=== PATIENT | male | born 1950 | race Caucasian/White ===

== ENCOUNTER 2018-06-08 10:35 | Day surgery (SDC) | payer MEDICARE, OTHER ==
[~2018-06-08] VITALS: Ht 180.3 cm; Wt 84.0 kg
[~2018-06-08 10:35] MED LIST: BUSP5 PO; CHOL10002 PO; Colace100 MG PO; Desyrel50 MG PO; ESCI10 PO; HYDR-86 PO; HYDR1TAB94 PO; HYDROCODON-ACE1 EAC3 PO; IBUHYD; IBUP400 PO; LEVO750 PO; LORA.5 PO; LORA2 PO; MACULAR HEALTH1 EACH; MACULAR HEALTH1 EACH PO; MIRT15 PO; OMEP40CA12 PO; ONDA4ODT MM; Oxycodone HCl5 M1; PANT40 PO; PRO OMEGA PO; PROM12.5S PR; Systane 0.3-0.1 EACH BOTHEYES; VALA500 PO; VITAMIN D-32000 UNIT PO; [UNRECOGNIZED DRUG - OTHER] PO
--- NOTE | 2018-06-08 11:36 | NUR ---
History, Chart, Medications and Allergies reviewed before start of procedure. Patient confirms NPO status and agrees with scheduled surgery. Patient reports completing Chlorhexadine shower X2 prior to admission to hospital. Patient States Post-Procedure ride home has been arranged with his friend, Annette.
--- NOTE | 2018-06-08 13:21 | NUR ---
06/08/18 1321 Dorie Roman PT VOIDED PRIOR TO COMING TO THE OR
--- NOTE | 2018-06-08 17:24 | NUR ---
Discharge instructions reviewed with patient. Patient verbalizes understanding. Copy given to patient to take home. Discharged via wheelchair to private car for ride home. PATIENT REPORTS HAS FREIND SPENDING NIGHT WITH HIM. VISITORS ALREADY PICKED UP SCRIPT. DENIES ANY QUESTIONS OR CONCERNS RELATED TO DISCHARGE
--- NOTE | 2018-06-08 18:19 | NUR ---
Discharge instructions reviewed with patient. Patient verbalizes understanding. Copy given to patient to take home. PATIENT REPORTS HAS FULL SCRIPT FOR PAIN MEDS GIVEN EARLIER FOR INJURY THAT HE HAS NOT TAKEN ANY MEDICATIONS. REPORTS PAIN TOLERABLE AND DECLINES MEDICATION PROIR TO DISCHARGE. DENIES ANY NAUSEA. Discharged via wheelchair to private car for ride home.
== END 2018-06-08 12:00 | disposition home or self-care (01) ==
LOC: ORSCMMR 10:35 → ORD 12:30 → ORSCMMR 13:00 → ORD 13:00
PROVIDERS: Surgery
PROC: 0YUA4JZ Supplement Bilateral Inguinal Region with Synthetic Substitute, Percutaneous Endoscopic Approach (ICD-10-PCS; principal; 2018-06-08 13:00)
PROC: 8E0W4CZ Robotic Assisted Procedure of Trunk Region, Percutaneous Endoscopic Approach (ICD-10-PCS; principal; 2018-06-08 13:00)
PROC: 0YUE4JZ Supplement Bilateral Femoral Region with Synthetic Substitute, Percutaneous Endoscopic Approach (ICD-10-PCS; principal; 2018-06-08 13:00)
DX: K40.20 Bilateral inguinal hernia, without obstruction or gangrene, not specified as recurrent (principal); K41.20 Bilateral femoral hernia, without obstruction or gangrene, not specified as recurrent; G47.33 Obstructive sleep apnea (adult) (pediatric); Z87.891 Personal history of nicotine dependence
CPT/HCPCS: 49650; 49659; S2900; C1781; J0690; J1100; J2250; J2370; J2405; J2710; J3010; J7120

== ENCOUNTER 2023-01-09 18:10 | Inpatient (IN) | payer MEDICARE ==
[~2023-01-09] VITALS: Ht 185.4 cm; Wt 75.7 kg
[~2023-01-09 18:10] MED LIST changes: +CARBIDOPA-LEVO1 EA19 PO; +TRAM50 PO
[2023-01-09 19:09] LABS: BASOPHILS ABSOLUTE AUTO 0.01 K/mm3 (0.00-0.23); BASOPHILS PERCENT AUTO 0 % (0-2); EOSINOPHILS PERCENT AUTO 0 % (0-6); Hematocrit 41.3 % (37.0-53.0); Hemoglobin 14.3 g/dL (13.5-17.5); IMMATURE GRAN ABSOLUTE AUTO 0.07 K/mm3 (0.00-0.10); IMMATURE GRAN PERCENT AUTO 1 % (0-1); LYMPHOCYTES ABSOLUTE AUTO 0.57 K/mm3 (0.84-5.20); LYMPHOCYTES PERCENT AUTO 6 % (21-46); MONOCYTES PERCENT AUTO 8 % (4-13); Mean Corpuscular HGB 29.8 pg (26.0-34.0); Mean Corpuscular HGB Conc 34.6 g/dL (31.5-36.5); Mean Corpuscular Volume 86 fL (80-100); Mean Platelet Volume 9.9 fL (9.1-12.4); NEUTROPHILS ABSOLUTE AUTO 8.81 K/mm3 (1.96-9.15); NEUTROPHILS PERCENT AUTO 86 % (41-73); Platelet Count 328 K/mm3 (150-400); RDW Standard Deviation 40.8 fL (35.1-46.3); White Blood Cell Count 10.26 K/mm3 (4.00-11.30)
[2023-01-09 19:43] LABS: Albumin, Blood 2.8 g/dL (3.4-5.0); Albumin/Globulin Ratio 0.8 (0.8-1.8); Bilirubin, Total 1.5 mg/dL (0.1-1.0); Bun/Creatinine Ratio 23.9 (12.0-20.0); Calcium, Blood 8.3 mg/dL (8.5-10.1); Creatinine, Blood 0.92 mg/dL (0.60-1.20); Globulin, Blood 3.6 g/dL (2.2-4.0); Potassium, Blood 3.7 mmol/L (3.5-5.5); Total Protein, Blood 6.4 g/dL (6.4-8.2)
[2023-01-09 20:03] LABS: Influenza A, PCR NEGATIVE (NEGATIVE); Influenza B, PCR NEGATIVE (NEGATIVE); Resp Syncytial Virus, PCR NEGATIVE (NEGATIVE)
[2023-01-09 20:07] LABS: SARS-Cov-2 (COVID-19) PCR, MMC POSITIVE (NEGATIVE)
--- NOTE | 2023-01-10 01:18 | NUR ---
ADMIT NOTE *LATE ENTRY* 0026 HRS PT TRANSPORTED BY [facility] AND FULLY ASSISTED TO HOSPITAL BED. CURRENTLY ON 15 L 02 VIA OXIMIZER. NO DYSPNEA NOTED. VSS. PT ORIENTED TO ROOM AND CALL LIGHT. RECIEVED REPORT FROM ER NURSE DEMETRIO.
--- NOTE | 2023-01-10 03:15 | NUR ---
CALLED RESIDENT WE DID RECEIVE A FAX FROM THE PATIENT'S FACILITY, [facility]. THE PATIENT'S POLST WITH CODE STATUS DNR/LIMITED. HOWEVER THE PATIENT MAY HAVE STATED HE WAS FULL CODE IN THE ER BEFORE ADMIT TO THIS FLOOR. WE WILL RE-EVALUATE WHEN THE PATIENT IS MORE AWAKE AND ALERT. THE PATIENT IS FULL CODE AT THIS TIME.
--- NOTE | 2023-01-10 04:41 | NUR ---
CALLED HOSPITALIST CALLED TO INFORM HIM OF PT RIPPING OFF BIPAP, IV, CLOTHING, AND INCREASED AGITATION. TO PUT IN AN ORDER FOR PORTERL
[2023-01-10 05:14] VITALS: BP 133/73
--- NOTE | 2023-01-10 05:25 | NUR ---
SHIFT SUMMARY PT ADMITTED THIS SHIFT FROM THE ED. PT ORIGINALLY ON 15 L VIA OXIMIZER. PT TRANSFERRED TO BIPAP WITH 8L O2. PT TOLERATED FOR A SHORT TIME BEFORE HE STARTED RIPPING OF BIPAP, IV, GOWN, AND PULSE OX. PLACED HIGH FLOW NC ON PT THAT HAD BEEN PREVIOUSLY SET UP BY RT. PT RIPPING OFF OXYGEN TUBING AND "STATING HE IS DONE WITH THIS AND HE QUITS". CALLED HOSPITALIST WHO PLACED ORDER FOR IM HALDOL. HOSPITALIST TO CALL FAMILY AND COME SEE THE PT. PT WAS TRANSFERRED FROM [facility]. [facility] HAS PATIENT DNR- LIMITED. PER HOSPITALIST THE PT TOLD HIM HE WOULD LIKE TO STAY A FULL CODE AT THIS TIME. PT IS ON ENHANCED DROPLET PRECAUTIONS DUE TO COVID POSITIVE. BED ALARM KEPT IN THE LOWEST POSITION WITH CALL LIGHT WITHIN REACH. WILL CONTINUE TO MONITOR UNTIL SHIFT END
[2023-01-10 06:08] LABS: BASOPHILS ABSOLUTE AUTO 0.01 K/mm3 (0.00-0.23); BASOPHILS PERCENT AUTO 0 % (0-2); EOSINOPHILS PERCENT AUTO 0 % (0-6); Hematocrit 40.8 % (37.0-53.0); Hemoglobin 14.1 g/dL (13.5-17.5); IMMATURE GRAN ABSOLUTE AUTO 0.03 K/mm3 (0.00-0.10); IMMATURE GRAN PERCENT AUTO 0 % (0-1); LYMPHOCYTES ABSOLUTE AUTO 0.31 K/mm3 (0.84-5.20); LYMPHOCYTES PERCENT AUTO 3 % (21-46); MONOCYTES ABSOLUTE AUTO 0.53 K/mm3 (0.16-1.47); MONOCYTES PERCENT AUTO 6 % (4-13); Mean Corpuscular HGB 29.5 pg (26.0-34.0); Mean Corpuscular HGB Conc 34.6 g/dL (31.5-36.5); Mean Corpuscular Volume 85 fL (80-100); NEUTROPHILS ABSOLUTE AUTO 8.75 K/mm3 (1.96-9.15); NEUTROPHILS PERCENT AUTO 91 % (41-73); Platelet Count 275 K/mm3 (150-400); RDW Coefficient Variation 13.1 % (11.7-14.2); RDW Standard Deviation 40.9 fL (35.1-46.3); Red Blood Cell Count 4.78 M/mm3 (4.30-5.90); White Blood Cell Count 9.63 K/mm3 (4.00-11.30)
[2023-01-10 06:37] LABS: Bun/Creatinine Ratio 26.7 (12.0-20.0); Calcium, Blood 8.5 mg/dL (8.5-10.1); Creatinine, Blood 0.97 mg/dL (0.60-1.20); Potassium, Blood 3.9 mmol/L (3.5-5.5)
--- NOTE | 2023-01-10 06:45 | NUR ---
RESIDENT AT BEDSIDE PT REFUSING ALL CARE. PT HAS ORDERED EVERYONE OUT OF THE ROOM AND IS REFUSING ALL CARE. PALLIATIVE CARE AND ETHICS CONSULTS ARE NOW IN PLACE.
[2023-01-10 07:41] VITALS: BP 114/73
--- NOTE | 2023-01-10 07:46 | NUR ---
Ethics consult order received and processed. Medical history, chart doumentation, and social matrix reviewed. Conflict identified between the principals verbal request to receive stabalizing and aggressive care and his actual conduct i.e. he is refusing basic clinical services including non-invasive airway support. Nisa Wray reports that his normal treatment expectations are DNR with limited interventions. If this disparity is attributable to unstable cognition or impaired capacity, then we should default to a care plan that aligns with his previously expressed wishes i.e. a non-curative / less aggressive approach. The advance care planning instruments on file at [facility] need to be requestsed and reviewed to ensure that the [facility] treatment preferences have been properly understood and validated. This can be further confirmed by family members or friends, assuming they possess this level of information. Thank you for this consult. Baron De La Cruz, PhD, JO
--- NOTE | 2023-01-10 14:00 | NUR ---
Spoke with ST Florence and discussed case. Pt recommended NPO. Pt's swallow has worsened since last hospital stay and may need a PEG tube. Pt resting in bed and in MAHNAZ. Pt slow to respond and appears weak and frail. Pt reporting wanting to leave. Engaged in therapeutic discussion regarding recommendations. Assessed Pt's understanding of ST recommendations. When asked about his understanding he states "nothing". Re-enforced education on swallow impairment and the potential need to consider Peg-tube placement. Pt appears to struggle with understanding. Ended visit to allow Pt to rest. Attempted to contact [facility] for copy of POLST. Unable to reach nurse who cares for Pt. Will attempt at a later time. Spoke with Dr Cook and discussed case. Palliative Care will remain available
--- NOTE | 2023-01-10 14:45 | NUR ---
Late Entry Spoke with RN Banking Management Consulting Manager Trudy reporting speaking with staff at [facility]. Pt does not have a POLST on file.
[2023-01-10 15:20] VITALS: BP 124/68
--- NOTE | 2023-01-10 17:49 | NUR ---
SHIFT SUMMARY A&OX2, CONFUSED, CAN BE REDIRECTED, INTERMITTANTLY IMPLUSIVE/NONCOMPLIANT. SWALLOW EVAL PERFORMED BY ST Arsen BEAVERS FAILED AND IS NOW NPO UNTIL FURTHER ORDERS ARE PUT INTO PLACE. PALLIATIVE CARE SAW PATIENT TODAY WITH HIS FRIEND STEPHANIE PRESENT. PATIENT PULLED HIS IV OUT LAST NIGHT AND HAS NOT RECEIVED ANY IV MEDS AT THIS POINT AND REFUSED HIS LOVENOX THIS AM. MAHNAZ RESTRAINT IS STILL IN USE. NO INJURIES NOTED, CIRCULATION INTACT. NEW IV PLACED IN R WRIST. CAMERA MONITORING IN PLACE. PATIENT DENIES PAIN, CP/PRESSURE, N/V, HEADACHE, DIZZINESS, OR SOB. NO ACUTE CHANGES THIS SHIFT. CURRENTLY RESTING IN BED AT LOWEST POSITION. CALL LIGHT IN REACH.
--- NOTE | 2023-01-10 18:17 | NUR ---
Met with Pt's friend Montana outside of Pt's room. Reviewed plan of care and discussed the importance of planning for the future. Montana reports working with Pt for over 40 years. Montana reports Pt is estranged from 2 sons and his sister. He reports Pt has not had contact with his sons for over 30 years and has not had contact with his sister since his last marriage. Discussed the potential need for Pt to consider Peg tube if he remains NPO. Montana reports Pt would not want a Peg tube. Montana also reports Pt's mentation has been declining for quite some time. Montana reports willingness to make decisions for Pt in the future if needed. Palliative Care will remain available
[2023-01-10 19:47] VITALS: BP 126/67
--- NOTE | 2023-01-11 04:01 | NUR ---
SHIFT SUMMARY ADMITTED FOR RESPIRATORY FAILURE. FULL CODE. ENHANCED PRECAUTIONS FOR COVID+. POSSIBLE ASPIRATION CONCERNS. PATIENT IS NPO. AMS, PATIENT IS CONFUSED. NS INFUSING ORDERED. IV ANTIB RX ARE SCHEDULED. HE IS ON RA, SATURATING @ 97%. HE WAS RECENTLY HOSPITALIZED AND SENT TO [facility] AFTERWARDS.
[2023-01-11 04:03] VITALS: BP 132/75
[2023-01-11 05:43] LABS: Hemoglobin 14.1 g/dL (13.5-17.5); Mean Corpuscular HGB 29.7 pg (26.0-34.0); Mean Corpuscular HGB Conc 32.8 g/dL (31.5-36.5); Mean Platelet Volume 10.2 fL (9.1-12.4); Platelet Count 276 K/mm3 (150-400); RDW Coefficient Variation 12.8 % (11.7-14.2); RDW Standard Deviation 42.4 fL (35.1-46.3); Red Blood Cell Count 4.75 M/mm3 (4.30-5.90); White Blood Cell Count 9.56 K/mm3 (4.00-11.30)
[2023-01-11 05:47] LABS: Mean Corpuscular Volume 91 fL (80-100)
[2023-01-11 06:08] LABS: Albumin, Blood 2.4 g/dL (3.4-5.0); Anion Gap 5 mmol/L (6-16); Blood Urea Nitrogen 28 mg/dL (8-24); Bun/Creatinine Ratio 29.8 (12.0-20.0); CO2, Blood 25 mmol/L (21-32); Calcium, Blood 8.4 mg/dL (8.5-10.1); Chloride, Blood 112 mmol/L (98-108); Creatinine, Blood 0.94 mg/dL (0.60-1.20); Glomerular Filtration Rate 87 (60-); Glucose, Blood 91 mg/dL (70-99); Phosphorus, Blood 2.7 mg/dL (2.5-4.9); Potassium, Blood 4.1 mmol/L (3.5-5.5); Sodium, Blood 142 mmol/L (136-145)
[2023-01-11 07:23] VITALS: BP 139/64
--- NOTE | 2023-01-11 13:15 | NUR ---
REPORT GIVEN TO SOTO ALCAZAR. PT WILL BE TRANSFERRED TO ROOM 346 ONCE ROOM IS CLEANED.
--- NOTE | 2023-01-11 13:52 | NUR ---
Spoke with ST Florence and discussed case. Pt cleared for puree diet but mentation remains impaired. Pt resting in bed and in MAHNAZ. Pt is confused and adamant about going home. Pt states he will drive his truck home. Reorientated Pt on where he was and how he arrived to the hospital. Pt struggling with understanding and remains in denial. Spoke with RN Ladle Cleaner Trudy and discussed case. Palliative Care will remain available
--- NOTE | 2023-01-11 14:28 | NUR ---
PT ARRIVED TO ROOM 346 FROM ROOM 342 VIA BED. PT IS ALERT BUT CONFUSED AND IMPULSIVE. REPORT TAKEN FROM SALMA ALCAZAR. THE PT WAS ORIENTED TO THE ROOM CALL LIGHT. THE PT IS IN A VEST RESTRAINT AT THIS TIME. BED IN THE LOW POSITION, BED ALARM ON
[2023-01-11 17:35] VITALS: BP 130/65
--- NOTE | 2023-01-11 17:58 | NUR ---
PT IS ALERT, ORIENTED TO SELF. PT IS IMPULSIVE TRYING TO GET UP SAYING HE NEEDS TO GO TO HIS TRUCK. THE PT IS CURRENTLY IN A VEST RESTRAINT DUE TO THE IMPULSIVENESS AND PULLING OUT IV LINES. THE PT APPEARS TO BE BREATHING EASILY ON RA AT THIS TIME. THE PT WAS GIVEN FLUIDS HONEY THICK AND DID WELL WITH THAT. PT REFUES DINNER. CALL LIGHT IN REACH. BED ALARM VIRTUAL SANITARIAN AT THE BEDSIDE
[2023-01-11 19:32] VITALS: BP 128/71
[2023-01-12 03:16] VITALS: BP 133/55
--- NOTE | 2023-01-12 04:28 | NUR ---
shift summary. shift has been mostly unremarkable. pt was in flaquita restraint upon shift change but was removed early in shift as pt has not been impulsive for me and has been redirectable throughout. pleasant and cooperative with care, aox1-2. repositioned frequently. incontinent, 1 bm this shift. satting well on room air. sleeps sporadically. has denied any pain this shift. bedrest thus far. has not used call light but is able to make needs known when prompted. fluids running throughout shift. bed locked in lowest positoin. call light left within reach.
[2023-01-12 07:15] LABS: BASOPHILS ABSOLUTE AUTO 0.02 K/mm3 (0.00-0.23); BASOPHILS PERCENT AUTO 0 % (0-2); EOSINOPHILS ABSOLUTE AUTO 0.02 K/mm3 (0.00-0.68); EOSINOPHILS PERCENT AUTO 0 % (0-6); Hematocrit 43.2 % (37.0-53.0); Hemoglobin 14.4 g/dL (13.5-17.5); IMMATURE GRAN ABSOLUTE AUTO 0.07 K/mm3 (0.00-0.10); IMMATURE GRAN PERCENT AUTO 1 % (0-1); LYMPHOCYTES ABSOLUTE AUTO 0.66 K/mm3 (0.84-5.20); LYMPHOCYTES PERCENT AUTO 6 % (21-46); MONOCYTES ABSOLUTE AUTO 0.83 K/mm3 (0.16-1.47); MONOCYTES PERCENT AUTO 8 % (4-13); Mean Corpuscular HGB 29.8 pg (26.0-34.0); Mean Corpuscular HGB Conc 33.3 g/dL (31.5-36.5); Mean Corpuscular Volume 89 fL (80-100); Mean Platelet Volume 9.8 fL (9.1-12.4); NEUTROPHILS ABSOLUTE AUTO 8.99 K/mm3 (1.96-9.15); NEUTROPHILS PERCENT AUTO 85 % (41-73); Platelet Count 314 K/mm3 (150-400); RDW Coefficient Variation 12.8 % (11.7-14.2); RDW Standard Deviation 42.2 fL (35.1-46.3); Red Blood Cell Count 4.83 M/mm3 (4.30-5.90); White Blood Cell Count 10.59 K/mm3 (4.00-11.30)
[2023-01-12 07:36] LABS: Bun/Creatinine Ratio 23.5 (12.0-20.0); Calcium, Blood 8.2 mg/dL (8.5-10.1); Creatinine, Blood 0.94 mg/dL (0.60-1.20); Potassium, Blood 4.1 mmol/L (3.5-5.5)
[2023-01-12 07:54] VITALS: BP 131/79
--- NOTE | 2023-01-12 11:37 | NUR ---
Pt resting in bed upon arrival. Pt's mentation is improved at time of this RN's visit. Offered therapeutic listening as Pt discusses events of previous marriages and not having contact with his 2 sons for quite some time. Pt reports for now his friend Montana will be his Healthcare Proxy. Engaged in therapeutic discussion regarding planning for the future. Educated on disease process including trajectory. Discussed the importance of needing to consider living in an assisted living. Discussed with Pt wishes regarding code status. Educated on life sustaining treatments including risks and implications. Pt reports his wishes are DNR. He reports for now being ok with returning to the hospital if needed to receive basic medical treatment (Limited Treatment). Assisted with completing POLST reflecting these wishes. Will discuss with Dr Cook and change code status. Palliative Care will remain available
--- NOTE | 2023-01-12 12:56 | NUR ---
Obtained signature for POLST from Dr Cook. Sent copy of POLST to medical records via hospital tube system. Placed orginal POLST in Pt's paper chart. Original POLST to follow Pt when D/C. Placed DNR order in [facility] per V/O from Dr Cook.
--- NOTE | 2023-01-12 13:41 | NUR ---
Spiritual care visit conducted. Patient is very welcoming of spiritual care and talks about his townsend with COVID and his fears that he will . Although he seems confused at times, he shares about his strong Judaism jamel and his concerns that he will be ready to because of the sins that he has committed. We discuss his spiritual beliefs and his thoughts about God, heaven and sin. He expresses thoughts that indicate that his sickness is God's judgement for his sins. I provide theological insights to the contrary and also point out scriptures that affirm God's tommy, forgiveness and promise of eternal life. Patient seemed relieved by the conversation and expressed futher yoselyn following a prayer that we prayed together. I will continue to remain available to patient and family.
[2023-01-12 17:02] VITALS: BP 131/90
--- NOTE | 2023-01-12 19:48 | NUR ---
SHIFT SUMMARY: "CARLYN" IS A&OX2-3. VSS, NO ACUTE EVENTS THIS SHIFT. POWERGLIDE TO LEFT UPPER ARM PATENT, SALINE LOCKED. MUSCLE STIFFNESS ESPECIALLY IN NECK AND BLE NOTED. PT WITH PO INTAKE RECOMMENDATIONS PER SPEECH. ATTENDS IN PLACE FOR INCONTINENCE. VIDEO MONITORING AND BED ALARM IN PLACE FOR IMPULSIVENESS, PT FORGETS HIS LIMITATIONS. MAINTAINING SATS ORA, CONTINUOUS PULSE OX IN PLACE. PT HAS BEEN REDIRECTABLE THIS SHIFT. HE IS SITTING UP IN BED WITH THE CALL LIGHT IN REACH. REPORT WAS GIVEN TO TAPPING MACHINE OPERATOR AUTOMATIC RN.
[2023-01-12 21:35] VITALS: BP 136/73
[2023-01-13 04:41] VITALS: BP 139/85
--- NOTE | 2023-01-13 04:52 | NUR ---
SHIFT SUMMARY PATIENT IS ALERT AND ORIENTED TO SELF ONLY. PATIENT HAS BEEN IMPULSIVE MOST OF THE BEGINNING OF SHIFT. SHIRA WAS CONTACTED AND OBTAINED A MAHNAZ VEST ORDER FOR SAFETY. PATIENT HAS BEEN INCONTINENT AND CHANGED PRN. VIDEO MONITORING IN PLACE. PATIENT HAS NOT COMPLAINED OF PAIN, NAUSEA, SOB OR VOMITTING THIS SHIFT. PATIENT IS ON COVID PRECAUTIONS AND HAS BEEN ON ROOM AIR ALL SHIFT SATTING ABOVE 95. BED IN LOCKED AND LOCKED POSITION. CALL LIGHT IN PLACE. WILL MONITOR UNTIL SHIFT CHANGE.
[2023-01-13 07:23] VITALS: BP 128/76
[2023-01-13 10:31] LABS: Bun/Creatinine Ratio 19.1 (12.0-20.0); Calcium, Blood 8.3 mg/dL (8.5-10.1); Creatinine, Blood 0.89 mg/dL (0.60-1.20); Potassium, Blood 3.7 mmol/L (3.5-5.5)
--- NOTE | 2023-01-13 15:01 | NUR ---
Brief supportive visit this afternoon. Pt resting in bed with friend Montana at bedside. Reviewed plan of care and answered questions. Pt and Montana report no other concerns at this time. Palliative Care will remain available
--- NOTE | 2023-01-13 15:44 | NUR ---
SHIFT SUMMARY: PATIENT IS AWAKE, ALERT AND ORIENTED TO SELF ONLY. IMPULSIVE, TRYING TO GET OOB ON MULTIPLE OCCASION AND NOT REDIRECTABLE. PATIENT STILL ON MAHNAZ VEST RESTRAINT FOR SAFETY. DENIES CP/PRESSURE, SOB, N/V AND DIZZINESS. RA c SPO2 RANGES 96-98% T/O SHIFT. LUNGS HAS FINE CRACKLES AND DIM T/O TO AUSCULTATIONS. PATIENT ON PUREED DIET c HONEY THICK LIQUIDS AND 1:1 FEEDER. PATIENT IS INCONTINENCE OF BLADDER, CHRISTOFER CARE, ATTENDS CHANGED, REPOSITIONED AND ORAL CARE T/O SHIFT. RECEIVED SCHEDULED IV ABX AND PO MEDS PER EMAR. VITAL SIGNS REVIEWED. BED ALARM ON FOR SAFETY AND CALL LIGHT IN REACH.
[2023-01-13 20:50] VITALS: BP 125/73
--- NOTE | 2023-01-14 04:15 | NUR ---
SHIFT SUMMARY PATIENT IS ALERT AND ORIENTED TO SELF ONLY. PATIENT HAS HAD NO ACUTE EVENTS THIS SHIFT. VITAL SIGNS REVIEWED. PATIENT HAS BEEN ON CAMERA FOR SAFETY PRECAUTIONS. PATIENT HAS BEEN IN A MAHNAZ VEST ALL SHIFT AND MONITORED FREQUENTLY FOR SAFETY. PATIENT HAS PULLED HIS POWERGLIDE THIS SHIFT. PATIENT HAD A BOWEL MOVEMENT THIS SHIFT. PATIENT REMAINS INCONTINENT OF URINE AND STOOL. PATIENT HAS NOT COMPLAINED OF PAIN, NAUSEA, SOB OR VOMITTING THIS SHIFT. PATIENT IS ON ROOM AIR AND HAS NOT GONE BELOW 95 O2 THIS SHIFT. BED IN LOCKED AND LOWEST POSITION. CALL LIGHT IN PLACE. WILL MONITOR UNTIL SHIFT CHANGE.
[2023-01-14 05:05] VITALS: BP 132/74
[2023-01-14 07:11] VITALS: BP 129/69
[2023-01-14 14:27] VITALS: BP 119/73
--- NOTE | 2023-01-14 17:59 | NUR ---
SHIFT SUMMARY: AT BEGINNING OF SHIFT, PATIENT WAS TRYING TO GET OOB AND NOT REDIRECTABLE. RECEIVED PRN PO SEROQUEL c GOOD EFFECT. PATIENT MENTATION HAS IMPROVED THE DAY PROGRESS. PATIENT IS AWAKE, ALERT, AND ORIENTED TO SELF, PLACED AND CURRENT SITUATION. PATIENT IS CALM, PLEASANT, COOPERATIVE AND EASILY REDIRECTABLE. MAHNAZ VEST RESTRAINT WAS DC'D AT AROUND 1100. PATIENT ABLE TO PARTICIPATE c PT MOBILITY IN BED AND ABLE TO SIT UP ON THE EOB. PER PT PATIENT ATTEMPTED TO STAND UP BUT WAS NOT SUCCESSFUL. PATIENT CONTINUES TO BE INCONTINENCE OF BOWELS AND BLADDER, CHRISTOFER CARE, ATTENDS CHANGED AND REPOSITIONED T/O SHIFT. PATIENT DENIES CP/PRESSURE, SOB, N/V AND DIZZINESS. RECEIVED SCHEDULED IV ABX AND PO MEDS PER EMAR. FEEDER AND ORAL CARE. RECEIVED BEDBATH AND LINEN CHANGED TODAY. VITAL SIGNS REVIEWED. BED ALARM ON FOR SAFETY. PIV TO JESSICA SALINE LOCKED. CALL LIGHT IN REACH.
[2023-01-14 19:34] VITALS: BP 99/57
[2023-01-15 03:30] VITALS: BP 119/61
--- NOTE | 2023-01-15 04:23 | NUR ---
SHIFT SUMMARY PATIENT IS ALERT AND ORIENTED TO SELF ONLY. PATIENT HAS HAD NO ACUTE EVENTS THIS SHIFT. PATIENT HAS BEEN OUT OF RESTRAINTS ALL SHIFT AND HAS BEEN REDIRECTABLE THIS SHIFT. PATIENT HAS NOT COMPLAINED OF PAIN, NAUSEA, SOB OR VOMITTING THIS SHIFT. PATIENT IS STILL ON ROOM AIR AND SATTING ABOVE 95 ENTIRE SHIFT. PATIENT HAS BEEN INCONTINENT OF URINE AND STOOL THIS SHIFT. BED IN LOCKED AND LOWEST POSITION. CALL LIGHT IN PLACE.
[2023-01-15 05:31] LABS: Hematocrit 41.4 % (37.0-53.0); Mean Corpuscular HGB Conc 33.8 g/dL (31.5-36.5); Mean Corpuscular Volume 89 fL (80-100); Mean Platelet Volume 9.6 fL (9.1-12.4); Platelet Count 360 K/mm3 (150-400); RDW Coefficient Variation 12.8 % (11.7-14.2); RDW Standard Deviation 41.3 fL (35.1-46.3); Red Blood Cell Count 4.67 M/mm3 (4.30-5.90); White Blood Cell Count 11.25 K/mm3 (4.00-11.30)
[2023-01-15 06:09] LABS: Bun/Creatinine Ratio 15.1 (12.0-20.0); Calcium, Blood 8.3 mg/dL (8.5-10.1); Creatinine, Blood 0.86 mg/dL (0.60-1.20); Potassium, Blood 3.9 mmol/L (3.5-5.5)
[2023-01-15 07:27] VITALS: BP 122/71
[2023-01-15 15:17] VITALS: BP 119/63
--- NOTE | 2023-01-15 15:25 | NUR ---
SHIFT SUMMARY: PATIENT IS AWAKE, ALERT AND ORIENTED TO SELF, PLACED AND CURRENT SITUATION. PATIENT IS CALM, PLEASANT AND COOPERATIVE c CARE. PATIENT DENIES CP/PRESSURE, N/V, SOB AND DIZZINESS. REPORTS PAIN TO LOWER BACK, WELL CONTROLLED c EMAR PAIN MEDS. PATIENT STILL ON ENHANCE ISOLATION FOR COVID POSITIVE. RA, ON CONTINUES PULSE OX, c SPO2 RANGES 95-99% THIS SHIFT. PATIENT IS INCONTINENCE OF BOWELS AND BLADDER, CHRISTOFER CARE, ATTENDS CHANGED AND REPOSITIONED T/O SHIFT. PATIENT IS ON PUREED DIET c NECTAR THICK LIQUID, FEEDER AND ORAL CARE. PATIENT RECEIVED SCHEDULED MEDS AND PRN SEROQUEL PER EMAR. VITAL SIGNS REVIEWED. PIV TO R FOREARM SALINE LOCKED. PATIENT IS ON VIDEO MONITORING, BED ALARM ON FOR SAFETY AND CALL LIGHT IN REACH.
[2023-01-15 19:30] VITALS: BP 99/59
[2023-01-16 04:32] VITALS: BP 103/60
--- NOTE | 2023-01-16 06:06 | NUR ---
SUMMARY: PT A/O TO SELF, SURROUNDINGS AND SITUATION BUT HAS SOME MILD CONFUSION AND IMPULSIVITY. REMINDERS WERE PROVIDED, BED ALARM IS ON AND CAMERA MONITORING IS IN PROGRESS FOR FALL RISK/SAFETY. HE'S PLEASANT AND COOPERATIVE W/CARE BUT IS VERY WEAK AND REMAINS ON BEDREST W/PHYS THERAPY CONSULTING. PT WAS ASSISTED W/REPOSITIONING, URINAL USE AND ATTENDS CHANGES PRN. HE TOLERATED PILLS CRUSHED IN APPLESAUCE W/ASP PREC'S MAINTAINED. COVID ISOLATION IN PLACE BUT SPO2 WNL ON RA W/CONT BIOX INTACT AND NO S/S RESP DISTRESS OBSERVED. SCHEDULED SEROQUEL AND TYLENOL WERE RECIEVED FOR RELIEF OF ANXIETY AND LOW BACK PAIN. NO ACUTE CHANGES, VSS/AFEBRILE. WCTM AND REPORT TO DAY RN.
[2023-01-16 07:30] VITALS: BP 122/71
--- NOTE | 2023-01-16 14:18 | NUR ---
SHIFT SUMMARY PT RESTING QUIETLY AT START OF SHIFT. SITTING UP TO CHAIR FOR BREAKFAST. PT IS FORGETFUL. BED ALARM ON FOR SAFETY. CALLS AT TIMES WHEN NEEDING TO VOID; OCCASSIONAL INCONTINENCE. THERAPY IN TO WORK WITH PT THIS AM. COVID +, ON RA WITH BIOX AT 98-100%. MEDS CRUSHED IN APPLESAUCE, HONEY THICK LIQUIDS. HX OF PARKINSONS. MEDICATED PER EMAR FOR C/O BACK PAIN AT START OF SHIFT. UP TO CHAIR FOR LUNCH. 2P ASSIST BACK TO BED, RESTING QUIETLY AT THIS TIME. CALL LT IN REACH. BED ALARM ON FOR SAFETY.
[2023-01-16 15:14] VITALS: BP 97/59
[2023-01-16 19:24] VITALS: BP 99/57
[2023-01-17 02:54] VITALS: BP 101/57
--- NOTE | 2023-01-17 06:17 | NUR ---
SHIFT SUMMARY PT AAOX3 BUT SITUATIONALLY CONFUSED. PT DID REQUEST PRN TYLENOL X1 FOR BACK PAIN. NO OTHER EVENTS. PT WAS GOOD OVERNIGHT AND ONLY ATTEMPTED TO GET OOB A FEW TIMES TO USE THE URINAL. NO OTHER EVENTS OVERNIGHT.
[2023-01-17 07:18] VITALS: BP 116/68
[2023-01-17 15:35] VITALS: BP 126/73
--- NOTE | 2023-01-17 16:53 | NUR ---
Policy clarification requested from attending provider regarding the use of medications to aid in the management of patients who are an elevated fall risk. Resolved: medications are not to be used as a form of restraint, but will be prescribed and administered according to acceptable medical, nursing, and pharmaceutical practices. If a dosage increase is clinically indicated for disease management, and as a secondary consequence it retards mobility, then it would not be considered a chemical restraint, but rather a necessary form of medical intervention. Thank you for this consult. Baron De La Cruz, PhD, JO
--- NOTE | 2023-01-17 17:50 | NUR ---
SHIFT SUMMARY PT AWAKE AT START OF SHIFT AND REMAINED AWAKE ALL DAY; SLEEPING ONLY A COUPLE OF MINUTES ONE TIME. PT OOB OR OUT OF THE CHAIR CONSTANTLY ALL SHIFT LONG. PT IS VERY UNSTEADY AND UNABLE TO EVEN STAND ON HIS OWN, MUCH LESS WALK; 2P MAX ASSIST USING FWW AND GB TO GET TO CHAIR OR BACK TO BED ONLY A COUPLE OF STEPS AWAY. PT DOES NOT FOLLOW DIRECTIONS MOST OF THE TIME. VERY FORGETFUL WITH SHORT TERM MEMORY. CONDOM CATH PLACED ON NOC SHIFT, BUT PT PULLED IMMEDIATELY AFTER START OF DAY SHIFT, SPILLING ALL OVER THE FLOOR. UP TO BSC FOR BM'S TODAY. PT ABLE TO WORK WITH PT/OT DURING THE DAY. PROMOTIONAL MODEL WORKING ON SAFE DISCHARGE PLAN. BED ALARM ON FOR SAFETY. CALL LT IN REACH.
[2023-01-17 20:26] VITALS: BP 96/54
--- NOTE | 2023-01-18 05:49 | NUR ---
SHIFT SUMMARY PT CALM AND SLEPT UNTIL AROUND 0430 AND TRYING TO GET OOB. PT SCREAMING I NEED TO GET TO MY TRUCK NOW TO GET MY MAIL AND SEE LONI. PT NOT REDIRECTABLE, TRIED TO DIVERT HIS ATTENTION AND OBTAIN VS. PT REFUSING AND GETTING COMBATIVE AND DIGGING NAILS INTO DISPATCHER CLERK AND YELLING. ALLOWED PT TO REFUSE VS, BUT PT STILL COMBATIVE AND GETTING INCREASINGLY MORE AGITATED. CALLED DR. BLACKMON TO REQUEST MEDICATION PT IS COMBATIVE, TRYING TO HIT, HALLUCINATING, YELLING, AND IS NOT REDIRECTABLE. ONE TIME ORDER OF 2.5MG HALDOL OBTAINED AND GIVEN WITH POSTIVE EFFECT.
--- NOTE | 2023-01-18 05:57 | NUR ---
SHIFT SUMMARY PT CALM AND COOPERATIVE AT BEGINNING OF SHIFT. AROUND 0430 PT STARTED GETTING OOB AND YELLING AND GETTING AGITATED. TRIED CALMING PATIENT, REDIRECTING HIM, DIVERTING HIS ATTENTION. ALL UNSUCCESSFUL. PT HALLUCINATING SEEING HIS TRUCK AND TRYING TO GET TO IT SAYING HE NEEDS TO GET HIS MAIL RIGHT NOW AND PLANT PROTECTION GUARD CHARLEY. PT NOT STEADY ON HIS FEET AND WHEN STAFF GETS NEAR HE STARTS SWINGING. GOT PT IN BED AND EXPLAINED HE IS AT THE HOSPITAL, ATTEMPTED TO TAKE VS AND PT STARTED DIGGING NAILS INTO WRITERS HANDS AND GETTING AGGRESSIVE. ALLOWED PT TO REFUSE VS, HE CONTINUED TO YELL AND GET INCREASINGLY MORE AGITATED ATTEMPTING TO GET OOB, GETTING MORE COMBATIVE WITH ANYONE WHO TRIES TO ASSIST HIM. NOTIFIED DR. BLACKMON TO REQUEST SOMETHING FOR AGITATION. ONE TIME ORDER OF HALDOL OBTAINED AND GIVEN WITH POSITIVE EFFECT. PT NOW CALM AND RESTING.
[2023-01-18 07:37] VITALS: BP 120/60
[2023-01-18 15:02] VITALS: BP 127/74
--- NOTE | 2023-01-18 17:45 | NUR ---
SHIFT SUMMARY: PT IS A 72 YEAR OLD WHO IS PLEASANT AND COOPERATIVE WITH OCASSIONAL CONFUSION AND DELUSION. HE HAS BEEN TO THE BED SIDE CHAIR AND DOING HIS EXERCISES TODAY AND WAS EVALUATED BY PT AND OT TODAY AND DID WELL. HE PROGRESSED FROM PUREE DIET TO MECHANICAL SOFT; WHICH HE HAS LIKED BETTER. HE CONTINUES TO BE NECTAR THICK. HE IS IN BED, CALL LIGHT WITHIN REACH, BED IN LOWEST POSITION, AND BED ALARM SET. NO SIGNS OF SYMPTOMS OF DISTRESS. PLAN OF CARE ONGOING.
[2023-01-18 20:49] VITALS: BP 105/59
[2023-01-19 04:59] VITALS: BP 117/66
--- NOTE | 2023-01-19 06:10 | NUR ---
Shift Summary Pt AOx4 with some episodes of confusion and delusion. He is easily reoriented. Slept well t/o most of the night after night time meds. Condom cath in place draining urine, he was continent with urinary urgency before condom cath placement. C/O back pain, medicated per EMAR with PRN tylenol. Pt is very weak, he attempted to get out of bed once and had to be assisted back into bed.
[2023-01-19 07:50] VITALS: BP 131/75
[2023-01-19 07:53] VITALS: BP 131/75
[2023-01-19 15:01] VITALS: BP 120/69
--- NOTE | 2023-01-19 16:50 | NUR ---
SHIFT SUMMARY: PT A&O X2-3. PT PLEASANT AND COOPERATIVE WITH ALL CARE. @0745 PT BED ALARM WENT OFF. WHEN STAFF WENT INTO ROOM, PT HAD ONE KNEE ON FLOOR HOLDING ON SIDE RAIL STATING "I DID NOT FALL. I WAS TRYING TO REACH MY PHONE." PHONE WAS LYING ON BED NEXT TO CALL LIGHT. IRIS AND POST FALL ASSESSMENT COMPLETED. NO INJURIES OCCURED WITH FALL. VSS POST FALL. NO FURTHER ACUTE EVENTS FAR THIS SHIFT. NO AGGRESSION OR AGITATION WITH STAFF. PT C/O BACK PAIN. REPOSITIONED AND MEDICATED PER EMAR. CONDOM CATH IN PLACE DRAINING YELLOW URINE. PT/OT ABLE TO WORK WITH PT. PT STILL WEAK REQUIRING 1-2P ASSIST W/TRANSFERS. PATIENT ABLE TO SWALLOW MEDS WHOLE WITH NECTAR LIQUID. CALL LIGHT IN REACH. BED IN LOWEST POSITION. WILL CONTINUE TO MONITOR.
[2023-01-19 19:06] VITALS: BP 112/68
[2023-01-19 19:32] VITALS: BP 112/68
[2023-01-20 04:01] VITALS: BP 121/67
--- NOTE | 2023-01-20 06:05 | NUR ---
Shift Summary When I first arrived pt had just had a fall, although according to the pt he was purposfully crawling across the floor to use the bathroom. No injuries were sustained, there is some redness on his knees. Pt slept well t/o the night after night-time meds. He is using the urinal in bed for voids with assistance. He is AOx4 although has moments of acute confusion forgetting where he is and why he is here. He also continues to overestimate his own strength and states he could still ambulate safetly to the bathroom even after 2 falls yesterday.
[2023-01-20 07:14] VITALS: BP 110/61
[2023-01-20] MEDS ORDERED: QUET100 PO (14:19)
[2023-01-20] MEDS ORDERED: Vitamin D1000 UNI1 PO (14:20)
--- NOTE | 2023-01-20 15:53 | NUR ---
MULTIPLE CALLS TO [facility] TO GIVE REPORT. BUSY SIGNAL EACH TIME.
[2023-01-20 16:37] VITALS: BP 126/68
--- NOTE | 2023-01-20 17:33 | NUR ---
PT DISCHARGED TO [facility]. REPORT GIVEN TO INGE ROBERSON. ALERT AND ORIENTED, R/A 2 PERSON ASSIST WITH FWW AND GAIT BELT
== END 2023-01-20 17:07 | DRG 177 ==
LOC: ER 18:10 → MEDS 22:52 → ENPENDDIS 01-20 13:49 → MEDS 01-20 17:07
PROVIDERS: Family Medicine Adult Medicine; Internal Medicine; Student in an Organized Health Care Education/Training Program; ADMIT Internal Medicine
PROC: XW033E5 Introduction of Remdesivir Anti-infective into Peripheral Vein, Percutaneous Approach, New Technology Group 5 (ICD-10-PCS; principal; 2023-01-09)
PROC: 3E0333Z Introduction of Anti-inflammatory into Peripheral Vein, Percutaneous Approach (ICD-10-PCS; 2023-01-09)
PROC: 8E0ZXY6 Isolation (ICD-10-PCS; 2023-01-09)
PROC: 5A09357 Assistance with Respiratory Ventilation, Less than 24 Consecutive Hours, Continuous Positive Airway Pressure (ICD-10-PCS; 2023-01-10)
DX: U07.1 COVID-19 (principal); G92.8 Other toxic encephalopathy; J69.0 Pneumonitis due to inhalation of food and vomit; J96.01 Acute respiratory failure with hypoxia; Z51.5 Encounter for palliative care; Z66 Do not resuscitate; G20.A1 Parkinson's disease without dyskinesia, without mention of fluctuations; F02.80 Dementia in other diseases classified elsewhere, unspecified severity, without behavioral disturbance, psychotic disturbance, mood disturbance, and anxiety; R13.12 Dysphagia, oropharyngeal phase; M19.90 Unspecified osteoarthritis, unspecified site; K44.9 Diaphragmatic hernia without obstruction or gangrene; M51.9 Unspecified thoracic, thoracolumbar and lumbosacral intervertebral disc disorder; F32.A Depression, unspecified; E86.0 Dehydration; Z78.1 Physical restraint status; Z79.899 Other long term (current) drug therapy; Z86.79 Personal history of other diseases of the circulatory system; Z98.52 Vasectomy status; Z98.890 Other specified postprocedural states; Z79.891 Long term (current) use of opiate analgesic
CPT/HCPCS: 0241U; 31720; 36415; 71045; 80048; 80053; 80069; 83880; 84484; 85025; 85027; 92526; 92610; 93005; 93010; 94640; 94660; 94664; 94762; 96365; 96375; 97110; 97112; 97161; 97165; 97530; 97535; 99285-25; A9270; C1751; J0248; J1100; J1630; J1650; J2543; J7030; J7050

== ENCOUNTER 2023-02-19 06:50 | Inpatient (IN) | payer MEDICARE ==
[~2023-02-19] VITALS: Ht 180.3 cm; Wt 73.6 kg
[~2023-02-19 06:50] MED LIST changes: +QUET100 PO; +Vitamin D1000 UNI1 PO
[2023-02-19 08:36] LABS: BASOPHILS ABSOLUTE AUTO 0.01 K/mm3 (0.00-0.23); BASOPHILS PERCENT AUTO 0 % (0-2); EOSINOPHILS PERCENT AUTO 0 % (0-6); Hematocrit 42.7 % (37.0-53.0); Hemoglobin 14.2 g/dL (13.5-17.5); IMMATURE GRAN ABSOLUTE AUTO 0.01 K/mm3 (0.00-0.10); IMMATURE GRAN PERCENT AUTO 0 % (0-1); LYMPHOCYTES ABSOLUTE AUTO 0.39 K/mm3 (0.84-5.20); LYMPHOCYTES PERCENT AUTO 8 % (21-46); MONOCYTES ABSOLUTE AUTO 0.37 K/mm3 (0.16-1.47); MONOCYTES PERCENT AUTO 8 % (4-13); Mean Corpuscular HGB 30.4 pg (26.0-34.0); Mean Corpuscular HGB Conc 33.3 g/dL (31.5-36.5); Mean Corpuscular Volume 91 fL (80-100); Mean Platelet Volume 9.2 fL (9.1-12.4); NEUTROPHILS ABSOLUTE AUTO 4.13 K/mm3 (1.96-9.15); NEUTROPHILS PERCENT AUTO 84 % (41-73); Platelet Count 296 K/mm3 (150-400); RDW Coefficient Variation 15.1 % (11.7-14.2); RDW Standard Deviation 50.6 fL (35.1-46.3); Red Blood Cell Count 4.67 M/mm3 (4.30-5.90); White Blood Cell Count 4.91 K/mm3 (4.00-11.30)
[2023-02-19 09:00] LABS: Bilirubin, Total 1.7 mg/dL (0.1-1.0); Bun/Creatinine Ratio 14.3 (12.0-20.0); Calcium, Blood 8.5 mg/dL (8.5-10.1); Creatinine, Blood 0.84 mg/dL (0.60-1.20); Globulin, Blood 3.1 g/dL (2.2-4.0); Total Protein, Blood 6.1 g/dL (6.4-8.2)
[2023-02-19 15:38] VITALS: BP 116/52
--- NOTE | 2023-02-19 18:13 | NUR ---
SHIFT SUMMARY ADMIT FROM ER AT ABOUT 1630. NPO STATUS, PATIENT HAS WET SOUNDING GURGLES, VOICE SOUNDS WET, DOESN'T APPEAR TO BE ABLE TO SWALLOW EFFECTIVELY FROM NURSING STANDPOINT, SUCTION SET UP IN ROOM, PATIENT DIDN'T TOLERATE WELL. REQUIRED 3 PERSON SLIDE TRANSFER TO BED. ALARM ON. PROVIDING INCONSISTENT INFORMATION FOR ADMIT. TOLERATING ABX WELL. CONDOM CATH IN PLACE ON ARRIVAL, DARK JAYLA URINE PRESENT. SKIN ISSUES NOTED IN ASSESSMENT. WILL CONTINUE TO MONITOR
[2023-02-19 19:49] VITALS: BP 94/59
[2023-02-19 21:27] VITALS: BP 119/75
[2023-02-20 03:25] VITALS: BP 108/62
--- NOTE | 2023-02-20 04:27 | NUR ---
SHIFT SUMMARY PT HAS HX OF DEMENTIA, NOT ABLE TO ANWER QUESTIONS APPROPRIATELY. PT CURRENTLY NPO STATUS D/T SWALLOWING DIFFICULTIES. AWAITING SPEECH EVAL. PT HAS WEAK COUGH EFFECT THAT APPEARS WET. PROVIDED SWABS FOR COMFORT. LR DONE INFUISING, ONLY 1 BAG ORDERED. PT INCONTINENT WITH CONDOM CATH IN PLACE. URINE IS DARK TEA COLORED. CALL LIGHT WITHIN REACH WITH BED IN LOWEST POSITION. PT KNOWS HOW TO CALL APPROPRIATELY. WILL CONTINUE TO MONITOR.
[2023-02-20 05:20] LABS: BASOPHILS ABSOLUTE AUTO 0.01 K/mm3 (0.00-0.23); BASOPHILS PERCENT AUTO 0 % (0-2); EOSINOPHILS ABSOLUTE AUTO 0.01 K/mm3 (0.00-0.68); EOSINOPHILS PERCENT AUTO 0 % (0-6); Hematocrit 34.6 % (37.0-53.0); Hemoglobin 11.2 g/dL (13.5-17.5); IMMATURE GRAN ABSOLUTE AUTO 0.01 K/mm3 (0.00-0.10); IMMATURE GRAN PERCENT AUTO 0 % (0-1); LYMPHOCYTES ABSOLUTE AUTO 0.59 K/mm3 (0.84-5.20); LYMPHOCYTES PERCENT AUTO 10 % (21-46); MONOCYTES ABSOLUTE AUTO 0.45 K/mm3 (0.16-1.47); MONOCYTES PERCENT AUTO 8 % (4-13); Mean Corpuscular HGB 29.9 pg (26.0-34.0); Mean Corpuscular HGB Conc 32.4 g/dL (31.5-36.5); Mean Corpuscular Volume 93 fL (80-100); Mean Platelet Volume 9.4 fL (9.1-12.4); NEUTROPHILS ABSOLUTE AUTO 4.82 K/mm3 (1.96-9.15); NEUTROPHILS PERCENT AUTO 82 % (41-73); Platelet Count 185 K/mm3 (150-400); RDW Coefficient Variation 15.1 % (11.7-14.2); RDW Standard Deviation 51.3 fL (35.1-46.3); Red Blood Cell Count 3.74 M/mm3 (4.30-5.90); White Blood Cell Count 5.89 K/mm3 (4.00-11.30)
[2023-02-20 06:00] LABS: Albumin, Blood 2.6 g/dL (3.4-5.0); Bilirubin, Total 1.4 mg/dL (0.1-1.0); Bun/Creatinine Ratio 20.5 (12.0-20.0); Calcium, Blood 8.2 mg/dL (8.5-10.1); Creatinine, Blood 1.17 mg/dL (0.60-1.20); Globulin, Blood 2.6 g/dL (2.2-4.0); Total Protein, Blood 5.2 g/dL (6.4-8.2)
[2023-02-20 08:17] VITALS: BP 139/72
[2023-02-20 08:46] LABS: Source, Urine Straight Cath
[2023-02-20 09:02] LABS: Appearance, Urine Clear (Clear); Bilirubin, Urine Neg (Neg); Blood, Urine 2+ (Neg); Color, Urine Yellow (P-Yellow); Glucose Qualitative, Urine Neg (Neg); Ketones, Urine 2+ (Neg); Leukocyte Esterase, Urine Neg (Neg); Nitrite, Urine Neg (Neg); Protein, Urine 1+ (Neg); Specific Gravity, Urine 1.025 (1.003-1.022); Urobilinogen, Urine NORM (Normal)
[2023-02-20 09:15] LABS: Bacteria Few /hpf; Mucus Mod (0-Heavy); Squamous Epithelial Cells Rare /hpf (Few); White Blood Cells, Urine 0-2 /hpf (0-5)
[2023-02-20 14:42] LABS: Bun/Creatinine Ratio 22.6 (12.0-20.0); Calcium, Blood 8.4 mg/dL (8.5-10.1); Creatinine, Blood 1.06 mg/dL (0.60-1.20); Potassium, Blood 3.9 mmol/L (3.5-5.5)
[2023-02-20 16:30] VITALS: BP 121/66
--- NOTE | 2023-02-20 17:08 | NUR ---
SHIFT SUMMARY: PT ORIENTED TO SELF, PERSON, AND PLACE. PT ANXIOUS AND IRRITABLE AT TIMES. PT NOT COOPERATIVE WITH CARE. PT A FALL RISK W/ BED AND CHAIR ALARM ON. PT PRESSES CALL LIGHT MULTIPLE TIMES AND WILL HOLLER OUT IF NOT RESPONDED TO RIGHT AWAY. PT BELIEVES KEYS ARE IN ROOM DESPITE STAFF LOOKING IN PERSONAL BAGS WITH PATIENTS PERMISSION AND DRAWERS/CLOSETS. STRAIGHT CATH UA SENT TO LAB THIS AM. LR INFUSING @ 125/HR. PT WORKED WITH SPEECH THERAPY THIS AM AND UPGRADED TO PUREE AND NECTAR THICK LIQUIDS. PT IS NOT HAPPY WITH HIS DIET AND BECOMES VERY ANGRY WHEN THICKENED LIQUIDS ARE PRESENTED OR HAVING STAFF MONITOR WHILE EATING. ISSUES WITH GUARDIANSHIP PRESENTED THIS SHIFT. PT NEEDING TO OBTAIN LEGAL GUARDIAN. PLAN FOR PT TO MOVE TO SCU ONCE ROOM IS CLEAN. CALL LIGHT IN REACH. CHAIR ALARM ON.
[2023-02-20 17:58] VITALS: BP 128/69
--- NOTE | 2023-02-20 18:10 | NUR ---
FALL: PT HAD FALL @1750. PT FOUND BY RODEO RIDER ON HANDS AND KNEES. PT STATED HE WAS WANTING TO TURN ON POWER BUTTON FOR TV. PT BACK TO BED WITH STAFF ASSIST. SKIN ASSESS. NO NEW MAYA/CUTS/BRUISES/SKIN TEARS. VSS. PT STATED HE WAS IN NO PAIN. CALLED. DR. LUBIN AND EXPLAINED SITUATION. POST FALL AND IRIS TO BE COMPLETED.
[2023-02-20 18:17] VITALS: BP 128/69
--- NOTE | 2023-02-20 19:15 | NUR ---
PT TRANSFERED FROM ROOM 339 AT ABOUT 1845. PT ORIENTED TO ROOM. ASSISTED PT WITH MEAL TRAY SET UP. REPORT RECIEVED FROM ELEUTERIO AT BEDSIDE. BED ALARM ON. SITTER IN PLACE. REPORT GIVEN TO CUSTOMER ACCOUNT ADMINISTRATOR NURSE.
--- NOTE | 2023-02-21 05:27 | NUR ---
NOC SHIFT SUMMARY: PT IS ALERT TO SELF AND PLACE. NO C/O PAIN. COMPLAINING OF CONSTIPATION. PRUNE JUICE GIVEN. VERY WEAK TO STAND AT BEDSIDE. 2 ASSIST. GENERALIZED SCABS. WAITING FOR GUARDIANSHIP. CALL LIGHT WITHIN REACH. BED IN LOW POSITION. SITTER AT BEDSIDE.
[2023-02-21 05:45] VITALS: BP 121/68
[2023-02-21 07:33] VITALS: BP 120/61
--- NOTE | 2023-02-21 15:15 | NUR ---
Spoke with [facility] and discussed case. Pt may benefit from Palliative Care visit. Pt resting in bed upon arrival. Pt's friend Susie at bedside. Attempted gentle education on the importance of considering placement for Pt's safety. Pt becomes easily agitated and appears to have poor insight. Remained silent and allowed Pt to express frustrations. Ended visit to allow Pt to rest. Spoke with KARYN Baldwin, Primary RN July and discussed case. Plan is for public guardianship. Palliative Care will remain available
[2023-02-21 15:43] VITALS: BP 127/63
--- NOTE | 2023-02-21 19:23 | NUR ---
SHIFT SUMMARY PATIENT UP TO CHAIR FOR BREAKFAST AND LUNCH 2PA WITH GAIT BELT, WALKER, VERBAL CUEING. HE WAS ALSO UP TO COMMODEX2 WITH 2 MEDIUM BOWEL MOVEMENTS. C/O SOME PAIN TO RIGHT ANKLE. LMOM FOR DR LUBIN REGARDING ANKLE PAIN WITH PRESSURE PER ALEXI PT. BED IN LOW POSITION, CALL LIGHT IN REACH. VIDEO MONITORING IN PROGRESS. BED ALARM ON.
[2023-02-21 19:39] VITALS: BP 103/57
[2023-02-22 04:07] VITALS: BP 116/62
--- NOTE | 2023-02-22 05:33 | NUR ---
NOC SHIFT SUMMARY: CONTINUES TO TRY AND GET OUT OF BED TO VOID. NEEDS HELP WITH URINAL. VOIDING ADEQUATELY. ALERT AND ORIENTED TO SELF AND YEAR. CONTINUES TO VERBALIZE HE FEELS LIKE HE HAS BEEN KIDNAPPED. CALL LIGHT WITHIN REACH. BED IN LOW POSITION.
--- NOTE | 2023-02-22 06:23 | NUR ---
IV TO THE RIGHT AC WAS COMING OUT. THIS IV WAS REMOVED. PATIENT LET THIS NURSE TRY ONCE TO OBTAIN ANOTHER IV. THIS RN WAS UNSUCCESSFUL. PATIENT THEN DECLINED TO HAVE ANYONE ELSE OR MYSELF TRY AGAIN.
[2023-02-22 07:06] LABS: Bun/Creatinine Ratio 9.1 (12.0-20.0); Creatinine, Blood 0.77 mg/dL (0.60-1.20); Potassium, Blood 4.2 mmol/L (3.5-5.5)
[2023-02-22 07:20] VITALS: BP 123/67
--- NOTE | 2023-02-22 07:22 | NUR ---
PATIENT REFUSING NEW IV AT THIS TIME. UNASYN FOR 0600 WAS NOT ABLE TO BE GIVEN. DR LUBIN NOTIFIED.
[2023-02-22 15:40] VITALS: BP 123/70
--- NOTE | 2023-02-22 19:38 | NUR ---
SHIFT SUMMARY PATIENT UP AND WALKING 2PA WITH WALKER AND GAIT BELT AND VERBAL CUEING TO BATHROOM AND BED, UP IN CHAIR FOR MEALS. PATIENT BECAME VERY UPSET AFTER HIS VISIT WITH DR LAINEZ AND THE NEWS THAT HE IS NO LONGER ABLE TO MANAGE HIS FINANCES OR CHOOSE WHERE TO LIVE. TANYACLAUDINE OXANA ARRIVED AROUND DINNER TIME FOR INITIAL ASSESSMENT. PATIENT USING CALL LIGHTY MOSTLY BUT WILL TRY TO GET UP ON OCCAISION. FRIEND GAURI REQUIRES SAFETY REMINDERS FOR PATIENT INCLUDING SAFE FOOD/FLUIDS RESTRICTION. VIRTUAL STAFF ASSISTANT MADE AWARE TO WATCH FOR THIS AND THAT SHE NOT TRY TO GET HIM OUT OF BED ON HER OWN. JUST BEFORE LUNCH, IT WAS FOUND BY THIS EDITORIAL DIRECTOR AND AUTHORIZATION SPECIALIST JIM VICTOR THAT HIS CHAIR ALARM CHORD WAS NO LONGER CONNECTED TO WALL UNIT. BED IN LOW POSITION, CALL LIGHT IN REACH, BED ALARM AND VIDEO MONITORING ON.
[2023-02-22 19:51] VITALS: BP 106/60
[2023-02-23 04:55] VITALS: BP 135/73
--- NOTE | 2023-02-23 05:36 | NUR ---
NOC SHIFT SUMMARY: CONDOM CATHETER IN PLACE. PATIENT IS IMPULSIVE. NO IV IN PLACE. ON ORAL ANTIBIOTICS FOR ASP PNA. CRUSH PILLS IN APPLESAUCE OR PUDDING. GUARDIANSHIP PENDING. NO C/O PAIN. RIGHT ANKLE X-RAY SHOWED POSSIBLE CHRONIC FRACTURE. UP WITH 2 ASSIST, WALKER AND GAIT BELT. BED IN LOW POSITION. CALL LIGHT [facility] REACH.
[2023-02-23 07:05] VITALS: BP 133/86
--- NOTE | 2023-02-23 13:22 | NUR ---
PATIENT IS ON CAMERA. WAS NOTIFIED PER CAMERA ALERT, " WAS ASKED IS PATIENT ALLOWED TO HAVE M&M'S?" PRIMARY NURSE STATED," NO HE IS NOT." MYSELF AND PRIMARY NURSE WALKED INTO ROOM PATIENT WAS FOUND TO HAVE M&M'S IN HAND AND WAS COUGHING. SAT BED ALL THE WAY UP, REMOVED M&M'S FROM PATIENT'S HAND. EDUCATED VISITOR ON REASON WHY PATIENT CANNOT HAVE SNACKS BROUGHT TO HIM AND CURRENT DIET ORDER. VISITOR WAS TOLD, "THIS IS A SAFETY HAZARD". VISITOR EXPRESSED SHE UNDERSTOOD EDUCATION. PATIENT IS SITTING UP RIGHT IN BED CURRENTLY.
[2023-02-23 15:28] VITALS: BP 126/68
--- NOTE | 2023-02-23 18:28 | NUR ---
SHIFT SUMMARY: PT A/O TO SELF, 1-2 ASSIST WITH WALKER AND GB, COOPERATIVE WITH CARE. PT IS FORGETFUL AND NEEDS RE-ORIENTED TO SITUATION AT TIMES. PT HAD LARGE BM TODAY. WAS CONTINENT OF URINE THROUGHOUT THE DAY. PT REPORTED PAIN TO R FOOT. PT ABLE TO AMBULATE BUT NEEDED VERBAL DIRECTION AND APPEARED TO GET STUCK AND UNABLE TO MOVE WHEN AMBULATING AT TIMES. PT NOTED TO BE ON CARBADOPA FROM PREVIOUS VISIT AND DR. GUZMAN NOTIFIED OF CONCERNS WITH GAIT/AMBULATION. PT HAD FRIEND NAMED SAMIRA MARTI VISIT. SHE BROUGHT IN A SANDWICH AND WAS CAUGHT ATTEMPTING TO FEED PT THIS SANDWICH. SAMIRA WAS EDUCATED ON PT DIET RESTRICTIONS AND ADVISED NOT TO GIVE HIM ANY FOOD HE HAD TO CHEW. PT WAS HEARD COUGHING AT A LATER TIME AND STUDENT RN REPORTED WHEN SHE WALKED INTO ROOM SAMIRA HAD M&M'S SHE HAD IN HER HAND AND SHE WAS TURNED IN A WAY SO SHE COULD HIDE GIVING M&M'S TO PT. PT WAS ABLE TO CLEAR HIS THROAT. SAMIRA WAS AGAIN ADVISED SHE CANNOT GIVE PT FOOD. SAMIRA PAREDES AND STATED SHE WAS NEVER TOLD THIS. SAMIRA WAS INFORMED IF SHE WANTS TO VISIT PT SHE WILL NEED TO HAVE HER PURSE SEARCHED FOR FOOD ITEMS BEFORE ENTERING PT ROOM TO ENSURE SHE HAS NO FOOD SHE CAN FEED PT AND IF SHE DOES NOT ALLOW FOOD TO BE REMOVED OR ALLOW US TO SEARCH ANY BAGS SHE WILL NOT BE ALLOWED TO ENTER PT ROOM. SAMIRA ROCHA SAMIRA ALSO REPORTED SHE GOT LOST TRYING TO GET HOME LAST NIGHT AND WAS LOST FOR 3.5 HOURS. PT FRIEND STEPHANIE WAS CALLED AND HE WENT AND CHECKED TO SEE IF SHE MADE IT HOME TODAY AFTER LEAVING HOSPITAL AND HE REPORTED SHE WAS HOME.
[2023-02-24 03:12] VITALS: BP 110/69
--- NOTE | 2023-02-24 06:48 | NUR ---
SHIFT SUMMARY NO EVENTS OVERNIGHT
[2023-02-24 07:17] VITALS: BP 113/78
[2023-02-24 15:02] VITALS: BP 127/72
--- NOTE | 2023-02-24 19:41 | NUR ---
SHIFT SUMMARY: PT A/O TO SELF, ONE ASSIST WITH WALKER AND GB. PT UNSTEADY AND NEEDS DIRECTION TO AMBULATE. PT HAS FREEZING SPELLS WHILE AMBULATING. PT HAS EPISODES OF WANTING TO GO THROUGH HIS BELONGINGS AND WANTS TO GET DRESSED TO GO HOME. PT IS RE-DIRECTABLE AND ABLE OT BE DISTRACTED. PT EATING WELL. PT FRIEND SAMIRA DID NOT VISIT TODAY.
[2023-02-24 20:04] VITALS: BP 115/66
[2023-02-25 02:14] VITALS: BP 118/62
--- NOTE | 2023-02-25 04:48 | NUR ---
SHIFT SUMMARY NOC PT A/O X 2. PLEASANTLY IRRITABLE AND COOPERATIVE WITH CARE. PT HAS HAD TO URINATE FREQUENTLY AND 1PA WITH GB/FWW TO BATHROOM. PT ABLE TO TAKE EVENING RX IN APPLESAUCE WELL WITH NECTAR THICK LIQUID TO GET RX DOWN SAFELY. PT HAS GUARDIANSHIP PAPER FROM PSYCH AND PENDING GUARDIANSHIP IN CHART. FURTHER ACTION FOR FUTURE WILL BE PT RECOMMENDATIONS. PT ON PUREE NECTAR THICK DIET. PT IS CURRENTLY RESTING REMOTE CLIP BOLTER AND WRAPPER, BED ALARM ON, BED IN LOWEST POSITION, AND CALL LIGHT WITHIN REACH.
[2023-02-25 07:38] VITALS: BP 126/63
[2023-02-25 15:23] VITALS: BP 131/64
--- NOTE | 2023-02-25 18:11 | NUR ---
SHIFT SUMMARY: NO ACUTE EVENTS. PT IRRITABLE AND ARGUMENTATIVE AT TIMES. DENIES HAVING TROUBLE TAKING CARE OF HIMSELF AT HOME, WANTED TO LEAVE AMA TODAY BUT COULD NOT FIND A RIDE. ON AVASURE VIRTUAL SUPERVISOR LOADING. GETTING UP MULTIPLE TIMES PER HOUR, WANTS TO WALK BUT GAIT IS VERY UNSTEADY AND HE HAD NEARLY FALLEN SEVERAL TIMES AND WOULD HAVE IF NURSING HAD NOT BEEN STANDING THERE WITH HIM AND HAD GAIT BELT ON PT. GETTING UP TO USE BR WITH 1-2 PERSON, FWW, GAIT BELT. NO BM TODAY. APPETITE OK, DOES NOT CARE FOR PUREED DIET. PLAN IS FOR GUARDIANSHIP AND PLACEMENT.
[2023-02-25 19:08] VITALS: BP 121/58
[2023-02-26 02:29] VITALS: BP 120/68
--- NOTE | 2023-02-26 05:04 | NUR ---
SHIFT SUMMARY NOC A/O TO SELF. SITTER IN PLACE DUE TO IMPULSIVENESS/CONFUSION/UNSTEADY GAIT/FALLS. NO ACUTE CHANGES TO REPORT. PT HAS BEEN PLEASANT AND COOPERATIVE WITH CARE TO THIS POINT. CAN BE IRRITABLE WHEN THE URGE TO URINATE IS TOO GREAT. PT ABLE TO TAKE BEDTIME RX CRUSHED IN APPLESAUCE AND TOLERATED WELL. PT HAS SLEPT FOR MOST OF SHIFT WITH NO BEHAVIORAL/FIXATING THUS FAR. PT IS STILL PENDING GUARDIANSHIP AND SNF PLACEMENT FOR DISCHARGE PLANNING. PT IS CURRENTLY RESTING WITH SITTER IN PLACE, BED ALARM ON, BED IN LOWEST POSITION, AND CALL LIGHT WITHIN REACH.
[2023-02-26 07:30] VITALS: BP 106/60
--- NOTE | 2023-02-26 12:53 | NUR ---
Brief supportive visit this afternoon. Pt sitting in chair upon arrival. Offered supportive conversation and therapeutic listening. Pt expressing some frustration about being in the hospital. He worries about getting his bills paid. Inquired about having a friend do this for him. He reports not having anyone he can trust. Continued therapeutic listening and then ended visit. Palliative Care will remain available
[2023-02-26 15:43] VITALS: BP 124/64
--- NOTE | 2023-02-26 18:09 | NUR ---
SHIFT SUMMARY PT A&O TO SELF, PLACE, AND TIME. PT NOT ORIENTED TO SITUATION AND TENDS TO GET CONFUSED. PT ABLE TO BE REORIENTED. PT HAD CONDOM CATHETER PLACED TO REDUCE THE RISK OF FALLS. PT GUARDIANSHIP PENDING. NO ACUTE EVENTS AT THIS TIME. PT LEFT IN A POSITION OF SAFETY WITH FALL PRECAUTIONS IN PLACE AND CALL LIGHT WITHIN REACH.
[2023-02-26 20:31] VITALS: BP 122/62
[2023-02-27 02:59] VITALS: BP 117/74
--- NOTE | 2023-02-27 03:16 | NUR ---
SET PAINTER SUMMARY VSS. LUNG SOUNDS DIMINISHED PER AUSVULTATION, BUT RESPS EVEN. REMAINS ON CAMERA, RAILS UP X 3 AND CALL LIGHT IN REACH FOR SAFETY. HOB ELEVATED. REFUSED PRN FOR AGITATION. VOICED HE WAS DETERMINED TO LEAVE "TODAY" AND AGREED TO SPEAK WITH THE MD REGARDING HIS DESIRES. PULLED OFF CONDOM CATH, BED CLEANED AND NEW CONDOM CATH APPLIED. INTERMITTENT REDIRECTION GIVEN. WILL CONTINUE TO MONITOR AND ENCOURAGE COMPLIANCE WITH SAFETY ADHERANCE.
[2023-02-27 07:26] VITALS: BP 130/77
[2023-02-27 17:09] VITALS: BP 134/71
--- NOTE | 2023-02-27 17:38 | NUR ---
NO ACUTE CHANGES, PT IS AOX2 WITH CONFUSION AND CAN BE IMPULSIVE. PT WAS COOPERATIVE WITH CARE, JUST TAKES A BIT TO REDIRECT. NO DISTRESS NOTED AT THIS TIME. HAS SET AVASURE OFF A FEW TIMES. TREATED FOR AGITATION X2 PER EMAR. CALL LIGHT IS WITHIN REACH AND BED ALARM IN [place] WILL CONTINUE TO MONITOR.
[2023-02-27 22:20] VITALS: BP 125/68
[2023-02-28 04:37] VITALS: BP 112/71
--- NOTE | 2023-02-28 04:40 | NUR ---
SHIFT SUMMARY; NO ACUTE CHANGES OVERNIGHT. THE PT IS AXO X3. THE PT HAS BEEN SLEEPING IN BED FOR THE MAJORITY OF THE NIGHT UNTIL 0400. THE PT KEEPS SITTING AT THE BEDSIDE STATING HE NEEDS TO GO BY A BOX OF BRIEFS. PT IS REORIENTATBLE BUT REQUIRES FREQUENT REORIENTATION. THE PT BECAUSE ANGRY EASILY AND HAS A SHORT PATIENCE WHEN IT COMES TO PERSONAL CARE. PT DOES NOT LIKE TO BE BOTHERED. THE PT DENIES ANY SOB, CHEST PAIN/PRESSURE, N/V OR PAIN. CURRENTLY THE PT IS SITTING IN BED WITH THE BED IN THE LOWEST POSITION AND THE CALL LIGHT AT BEDSIDE. FIRE SAFETY MAINTAINED T/O THE NIGHT.
[2023-02-28 07:28] VITALS: BP 124/64
[2023-02-28 15:33] VITALS: BP 104/54
--- NOTE | 2023-02-28 16:58 | NUR ---
NO ACUTE CHANGES, PT CONTINUES TO BE CONFUSED HAS BEEN REDIRECTABLE AT THIS TIME. TREATED FOR MILD AGITATION PER EMAR. NO DISTRESS NOTED AT THIS TIME AND BED ALARM AND CHAIR ALARM IN USE. CALL LIGHT IS WITHIN REACH WILL CONTINUE TO MONITOR.
[2023-02-28 20:27] VITALS: BP 107/56
[2023-03-01 05:01] VITALS: BP 125/59
[2023-03-01 07:29] VITALS: BP 116/62
--- NOTE | 2023-03-01 07:31 | NUR ---
SHIFT SUMMARY PT A&OX4, CONFUSED AT TIMES. NORMOTENSIVE, HR 60'S, AFEBRILE, O2 >95% ON RA. TOLERATING A PUREED, NECTAR THICK DIET. X2 ASSIST TO BR WITH FWW. VOIDING IN BR, NO BM THIS SHIFT. INCONTINENT OF URINE, BRIEF IN PLACE. VIDEO SITTER IN PLACE AND BED ALARM SET FOR PT SAFETY. FIRE SAFETY CHECKS COMPLETED
--- NOTE | 2023-03-01 11:56 | NUR ---
Spiritual Care Visit. Pt. is sitting up in a chair and welcomes my visit. Pts. SO is present in the room. Pt. is unsettled about his prognosis and verbalized concerns about his care. Listened with empathy and a calming presence and sought to normalize the Pt. experience. Directed the conversation to schaeffer life review and matters of jamel and belief. Pt. displays evidence of being aware and can engage in the conversation. Prayed with the Pt. Pt. and SO verbalized gratitude for the spiritual care visit.
--- NOTE | 2023-03-01 19:16 | NUR ---
SHIFT SUMMARY PT BUSY TODAY GETTING UP FROM CHAIR SEVERAL TIMES CAUSING ALARM TO SOUND. STATED THIS MORNING HE HAD BEEN GETTING UP ALL NIGHT BY HIMSELF AND DIDN'T BELIEVE ME WHEN I SAID HE HADN'T BECAUSE THE CAMERA WOULD HAVE ALARMED IF HE HAD. WAS SERVED GUARDIANSHIP PAPERS TODAY. LADY FRIEND IN AND APPEARED TO ESCALATE PTS BEHAVIOR AT TIMES. ASSITED TO BATHROOM USING FWW AND GAIT BELT AND HAD AN XL BM.
[2023-03-01 19:24] VITALS: BP 111/61
[2023-03-02 05:45] VITALS: BP 112/64
--- NOTE | 2023-03-02 06:02 | NUR ---
END OF SHIFT SUMMARY PT IRRITABLE AND IGNORED ASSESSMENT QUESTIONS. PT SLEPT WELL FOR MOST OF SHIFT. PT ATTEMPTED TO GET UP ONCE, STATING THAT "I HAVE TO GET MY ASMITA'S ON AND GO HOME." NO C/O PAIN OR DISCOMFORT. PT DENIED CHEST PAIN, NO SOB, NO DIZZINESS/LIGHTHEADEDNESS WITH TRANSFERS. PT ENCOURAGED TO CALL FOR ASSISTANCE BEFORE GETTING UP OOB. CAMERA/MONITORING SYSTEM TURNED ON, CALL LIGHT WITHIN REACH, WCTM.
[2023-03-02 07:20] VITALS: BP 110/55
[2023-03-02 15:42] VITALS: BP 108/57
--- NOTE | 2023-03-02 18:32 | NUR ---
SHIFT SUMMARY PT IRRITABLE THIS A.M. AND CURSING AT STAFF ATTEMPTING TO KEEP HIM SAFE WITH USE OF WALKER FOR MOBILITY. LADY FRIEND CAME TO SEE HIM THIS MORNING WELL. PT SEEMED TO ESCALATE WITH NEEDS TO GO HOME AND CHECK THINGS OUT AND HIDE BELONGINGS. FRIEND ASKED IF THAT WAS OK-SHE HAD BEEN TOLD YESTERDAY HE WASN'T TO JUST LEAVE TO CHECK OUT HIS HOUSE AND THEN COME BACK-AND ONCE AGAIN REMINDED OF RULE. PT VERBALIZED DISLIKE OF THE RULES. FRIEND HAD ALSO BROUGHT CANDY AND AN EGG MCMUFFIN AND NEEDED REMINDING THAT PT WASN'T TO EAT THE FOOD BROUGHT IN BY HER. EACH TIME STAFF CAME TO ROOM WHEN PT WAS GETTING OUT OF BED AND ALARM SOUNDED SHE WOULD NOT RECOGNIZE PTS INABILITY TO MAKE SAFE CHOICES AND CAUSE GREATER DIFFICULTY PROVIDING CARE TO PT AND KEEP HIM SAFE. PT BELLIGERANT WITH STAFF MOST OF THE MORNING. SEROQUEL GIVEN. UNIT TECHNICIAN CAME AND ASKED/ASSISTED FRIEND TO LEAVE HELPING HER GO OUT TO PARKING LOT AND FIND HER CAR BECAUSE SHE COULDN'T FIND IT. COURT VERTICAL LATHE OPERATOR IN TO SEE PT THIS MORNING WELL. THIS AFTERNOON PT HAS BEEN COOPERATIVE WITH CARE AND APPEARED ALRIGHT WITH RULES TO KEEP HIM SAFE IN BED, IN CHAIR, AND AMBULATING TO BATHROOM. HAS ALSO BEEN APPROPRIATE BEHAVIORILLY WITH STAFF.
[2023-03-02 21:54] VITALS: BP 121/66
[2023-03-03 03:06] VITALS: BP 124/69
--- NOTE | 2023-03-03 05:50 | NUR ---
END OF SHIFT SUMMARY PT EXTREMELY CANTANKEROUS, REFUSING ASSISTANCE FROM THIS AUTHOR, NOT SURE WHY. THERAPEUTIC COMMUNICATION AND ACTIVE LISTENING SKILLS USED, HOWEVER, PT USED PROFANITY, CALLING THIS RN A "BITCH" AND "IDIOT". TELLING THE OTHER CAREGIVER THAT HE DIDN'T WANT THIS RN TO HELP WITH TRANSFERS. EARILER IN THE SHIFT, PT WAS MUCH MORE PLEASANT, AND ACCEPTED HELP. THE OTHER RN WAS ABLE TO PASS THE 2100 MEDICATIONS TO PT SUCCESSFULLY. PRN SEROQUEL WAS GIVEN WITH GOOD RESULTS. CAMERA/MONITOR IN PLACE. VERY UNSTEADY GAIT WAS NOTED PT WAS WALKING AROUND HIS ROOM WITHOUT HIS FWW OR GB. CALL LIGHT WITHIN REACH, [facility].
[2023-03-03 07:23] VITALS: BP 135/70
[2023-03-03 16:39] VITALS: BP 130/74
[2023-03-03 19:23] VITALS: BP 111/53
--- NOTE | 2023-03-03 19:25 | NUR ---
PATIENT CONFUSION INCREASES AT TIMES, PATIENT NONDIRECTABLE OR CONSOLABLE AT THAT TIME, PATIENT STATES "IM DONE WITH YOU, YOU DONT HAVE TO COME BACK" TO STAFF, THERAPIES, AND DR. LOPEZ GAIT, BED AND CHAIR ALARM USED, AMY HOGAN VISITED TODAY, FRIEND IS VERY CONFUSED ALSO AND NEEDS EDUCATED ABOUT DIET DISCHARGE AND MEDICATIONS HOURLY WHEN HERE. FRIEND INCREASES PATIENT AGITATION AT TIMES. WAITING FOR GUARDIANSHIP TO FOLLOW THROUGH, SEROQUEL BID SCHEDULED NOW AND AVAILABLE PRN, RELAYED TO PM RN, CALL LIGHT WITH IN REACH
[2023-03-04 02:54] VITALS: BP 127/68
--- NOTE | 2023-03-04 06:05 | NUR ---
SHIFT SUMMARY NOC PT A/O X 2-3. CONFUSED AT TIMES BUT REDIRECTS EASILY. NO ACUTE CHANGES TO REPORT. PT VSS. 1PA FWW TO BATHROOM. PT STILL AWAITING GUARDIANSHIP THEN SNF PLACEMENT. PT IS CURRENTLY RESTING WITH REMOTE MONITOR CAMERA, BED ALARM ON, BED IN LOWEST POSITION, AND CALL LIGHT WITHIN REACH.
[2023-03-04 07:38] VITALS: BP 128/62
--- NOTE | 2023-03-04 09:58 | NUR ---
PATIETN ALERT AND COOPERATIVE THIS AM, DR HORNER ROUNDED ON PATIENT, BED/CHAIR AND MONITOR ON, CALL LIGHT WITH IN REACH
[2023-03-04 16:24] VITALS: BP 123/70
--- NOTE | 2023-03-04 18:44 | NUR ---
1:1 AT BEDSIDE FOR IMPULSIVENESS, MEDICATED WITH PRN SEROQUEL AND SCHEDULED, PATIENT CONITNUES TO NEED REGUALR RE-ORIENTATION AND DIRECTION, COMPLIANT AT TIMES, NO IV ACCESS, WAIITNG FOR GUARDIANSHIP ASSISTANCE WILL RESUME ON MONDAY. SHUFFLED PARKISONS GAIT, BED/CHAIR ALARMS ON, CALL LIGHT WITH IN REACH
[2023-03-05 02:48] VITALS: BP 149/75
--- NOTE | 2023-03-05 04:18 | NUR ---
SHIFT SUMMARY PATIENT HAD NO ACUTE CHANGES. AXOX 2 WITH CONFUSION WANTING TO GO OUT TO HIS GARAGE. REORIENTED TO PLACE. 1-2 ASSIST TO BR. SHUFFLE PARKINSON GAIT. 1:1 SITTER FOR IMPULSIVENESS. 1-2 OOB ATTEMPTS. MILD AGITATION AT TIMES WHEN UP. SCHEDULE SEROQUEL. REFUSED FIRST SET OF VITALS. NO IV ACCESS. DENIES CHEST PAIN, SOB, AND N/V. VSS/AFEBRILE. CALL LIGHT IN REACH. BED IN LOWEST POSITION. WILL CONTINUE TO MONITOR UNTIL DAY SHIFT NURSE ASSUMES CARE.
[2023-03-05 07:25] VITALS: BP 120/59
[2023-03-05 16:02] VITALS: BP 124/75
--- NOTE | 2023-03-05 16:41 | NUR ---
PATIENT'S FRIEND SAMIRA, EDUCATED AND ASKED MULTIPLE TIMES TO STOP INCREASING PATIENTS AGITATION, SAMIRA CONTINUED TO ARGUE "YOU ARE BEING RUDE", SAMIRA INFORMED SHE KEEPS BRINGING THINGS INTO THE ROOM THAT HAS BEEN ASKED NOT TO BRING FOR MULTIPLE DAYS AND INFLUENCING PATIENT TO NOT FOLLOW PROTOCOLS FOR STAND BY ASSIST WHEN WALKING, TALKING ABOUT TAKING PATIENT HOME REGARDLESS OF PATIENT IS DISCHARGED. FRIEND SAMIRA ASKED TO LEAVE AND TAKE THE DAY OF AND COME BACK TOMORROW, SAMIRA CONTNUED TO ESCILATE, SAMIRA ASKED AGAIN TO PLEASE LEAVE, SAMIRA THREATENING "I AM NOT GOING UNLESS HE IS GOING HOME WITH ME", PATIENT AND SAMIRA EDUCATED MORE ON THE NEED FOR PATIENT TO STAY. CHARGE NURSE INGE ALVAREZ CONTACTED AND AT BEDSIDE, SAMIRA WAS ASKED MULTIPLE TIMES TO GO HOME AND CONTINEUED TO ESCILATE, SECURITY NOTIFIED FOR A STAND BY, SAMIRA ESCORTED OUT, SAMIRA CONTINUES TO NEED REDIRECTION AND EDUCATION EVERY 5 MINTUES, SAMIRA IS UNABLE TO FIND HER CAR AND PATIENT ROOM ON A DAILY BASES, PATIENT CONTINUED TO BE COOPERATIVE AND DIRECTABLE
--- NOTE | 2023-03-05 16:54 | NUR ---
NO ACUTE CHANGES, PATIENT CONTINUES TO BE DIRECTABLE, EMOTIONALLY LIABLE, PATIENT EASIER TO DIRECT OUT OF AGITATION AND ANGER, 1:1 AT BEDSIDE, PATIENT CONTINUES TO BE A STAND BY ASSIST, SHIFFLED PARKINSONS GAIT, BED/CHAIR ALARMS ON, CALL LIGHT WITH IN REACH
[2023-03-05 19:04] VITALS: BP 115/68
[2023-03-06 02:08] VITALS: BP 115/58
--- NOTE | 2023-03-06 04:19 | NUR ---
SHIFT SUMMARY PATIENT HAD NO ACUTE CHANGES. AXOX 2 WITH CONFUSION AT TIMES. ONE ASSIST FWW/GB TO BR. PARKINSON SHUFFLED GAIT. SITTER 1:1. REFUSED FIRST SET OF VITALS. DENIES CHEST PAIN, SOB, AND N/V. VSS/AFEBRILE. NO IV ACCESS. NO AGITATION NOTED THIS SHIFT. WATCHED TV ON/OFF. CALL LIGHT IN REACH. BED IN LOWEST POSITION AND ALARM ACTIVATED. WILL CONTINUE TO MONITOR UNTIL DAY SHIFT NURSE ASSUMES CARE.
--- NOTE | 2023-03-06 05:57 | NUR ---
PATIENT HAVING INCREASED AGITATION. GETTING OOB WITHOUT ASSIST. PATIENT YELLING AND SWINGING ARMS AT THREE STAFF. PATIENT CONFUSED REPORTING HE WANTS TO GO TO HIS KITCHEN TO MAKE COFFEE AND DOESN'T TRUST US IF WE MAKE COFFEE. PATIENT BACK IN BED AND TV PUT ON FOR DISTRACTION. PATIENT NOW CURSING. SITTER 1:1 PRESENT IN ROOM. [facility].
--- NOTE | 2023-03-06 06:26 | NUR ---
PATIENT REMAINS AGITATED. REFUSED TO TAKE SEROQUEL REPORTING HE IS NOT TAKING THAT POISON AND TO PUT IT BACK. SITTER 1:1 PRESENT IN ROOM. PATIENT NOT ABLE TO FOLLOW DIRECTIONS AT THIS TIME AND CONTINUES TO CURSE/CONFUSED. DUPLEX TRIMMER AWARE TO CONTINUE A DAY SITTER.
[2023-03-06 08:06] VITALS: BP 118/67
[2023-03-06 16:34] VITALS: BP 104/55
[2023-03-06 16:37] VITALS: BP 104/54
--- NOTE | 2023-03-06 18:17 | NUR ---
SHIFT SUMMARY- PT IS ALERT. HE SLEPT INTERMITENTLY THROUGHTOUT THIS SHIFT. WORKED WITH PT THIS SHIFT AND TOLORATED WELL. SITTER BY THE BEDSIDE. HIS BED IS IN THE LOW POSITION AND CALL LIGHT IS WITHIN REACH.
[2023-03-07 02:46] VITALS: BP 129/62
--- NOTE | 2023-03-07 04:06 | NUR ---
SHIFT SUMMARY PATIENT A/Ox2, IRRITABLE/CONCRETE, CONFUSED. STATED TO THIS RN, "DON'T YOU BE COMING INTO MY HOUSE THIS LATE AT NIGHT." ATTEMPTED TO REORIENT/REDIRECT, PATIENT DID APOLOGIZE FOR BEHAVIOR. CONTINUES ON 1:1 FOR PATIENT SAFETY. NO ACUTE CHANGES NOTED OVERNIGHT. BED LOCKED, CALL LIGHT WITHIN REACH.
[2023-03-07 07:16] VITALS: BP 139/76
[2023-03-07 16:02] VITALS: BP 121/63
--- NOTE | 2023-03-07 17:20 | NUR ---
SHIFT SUMMARY PT AOX2-3, HIS CONFUSION WAXES AND WANES. HE IS A 1 ASSIST WITH THE GB AND WALKER TO THE BATHROOM. HE HAS A 1:1 SITTER. PT WAS MEDICATED FOR AGITATION PER THE EMAR THIS AFTERNOON, OTHER EVENTS HAVE OCCURRED BUT STAFF WAS ABLE TO TALK HIM DOWN. HE CAN GET IRRITABLE QUICKLY AND SUDDENLY. PT HAS BEEN RESTING COMFORTABLY MOST OF THE LATER AFTERNOON. HE IS WAITING ON PLACEMENT AND GUARDIANSHIP. CALL LIGHT WITHIN REACH, BED IN THE LOWEST POSITION. WILL REPORT TO ONCOMING NURSE.
[2023-03-07 19:45] VITALS: BP 124/61
--- NOTE | 2023-03-08 04:44 | NUR ---
SUMMARY: PT A/OX2-3 AND IS FORGETFULL AT TIMES BUT HAS BEEN PLEASANT AND REDIRECTABLE T/O NOCTE. HE'S SLEPT MAJORITY OF SHIFT BUT REMAINS IMPULSIVE OOB TO USE RESTROOM W/BED ALARM ON FOR FALL RISK. HE'S UP W/1PA AND FWW D/T UNSTEADY GAIR R/T PARKINSONS. PT WAS CONTINENT/INCONTINENT W/ATTENDS CHANGED PRN. GUARDIANSHIP AND SNF PLACEMENT PENDING. NO ACUTE CHANGES, VSS/AFEBRILE. WCTM AND REPORT TO DAY RN.
[2023-03-08 05:26] VITALS: BP 106/50
[2023-03-08 07:27] VITALS: BP 125/67
[2023-03-08 15:40] VITALS: BP 105/62
--- NOTE | 2023-03-08 17:03 | NUR ---
SHIFT SUMMARY PATIENT RESTLESS AND AGITATED THIS MORNING WORRYING ABOUT HIS WALLET. PATIENT ALERT AND INTERACTIVE BUT CONFUSED. PATIENT MEDICATED FOR INCREASED AGITATION. PATIENT DE ESCALATED AFTER VISITOR ARRIVED AND BEING MEDICATED. PATIENT VERY PARANOID AND GETTING EVENTS CONFUSED. PATIENT FEELING THAT HE WAS IN TROUBLE AND BEING PUNISHED. PATIENT UP TO BATHROOM FREQUENTLY THROUGHOUT THE DAY USING WALKER AND GAIT BELT FOR AMBULATION. SHIP STEWARD WALKED PATIENT IN CRONIN FOR EXERCISE
[2023-03-08 19:38] VITALS: BP 108/56
[2023-03-09 05:37] VITALS: BP 123/57
[2023-03-09 06:22] VITALS: BP 114/54
[2023-03-09 07:23] VITALS: BP 102/64
--- NOTE | 2023-03-09 15:40 | NUR ---
SHIFT SUMMARY PT AWAKE AT START OF SHIFT, LYING HF AND WATCHING TV. PT THEN OOB, SETTING BED ALARM OFF. PT AGGRESSIVE WITH STAFF WHEN TRYING TO ASSIST HIM TO PREVENT A FALL. SECURITY CALLED TO ASSIST. PT CAN BE VERY VERBALLY ABUSIVE AND WILL HIT STAFF WHEN TRYING TO ASSIST HIM. PT UP TO CHAIR AND UP TO BTHRM SEVERAL TIMES THRU OUT SHIFT. S/O TO FOR A WHILE, BRINGING IN UNSAFE FOOD ITEMS. S/O AND PT EDU ON PT'S DIET AND ASPIRATION PRECAUTIONS, BY ANDREA WHITE. PT WANTING TO LEAVE AMA, BUT HAS REMAINED TO PRESENT. ANOTHER VISITOR TO THIS AFTERNOON, BRING IN DOG FOR PT TO SEE. PT SEEMS TO BE CALMER AND MORE CO-OP AT THIS TIME. DENIES FURTHER NEEDS. CHAIR ALARM AND BED ALARM USED. CALL LT IN REACH.
[2023-03-09 15:53] VITALS: BP 113/74
[2023-03-09 19:55] VITALS: BP 120/67
[2023-03-10 02:09] VITALS: BP 125/66
--- NOTE | 2023-03-10 05:18 | NUR ---
SHIFT SUMMERY PT SLEEPING MOST OF THE NIGHT. PT UP TO BR X 2 THE FIRT TIME PT CALLED WITH CALL LIGHT AND FALLOWED DIRECTIONS AND WAS NOT VERBALY ABUSE. THE NET TIME PT SET OFF ALARM AND [place] CHARGE NURSE TRYING TO HELP PT HITTING AT HER AND BEING VERBALY ABUSEIVE ABOUT BEING HELPED. PT AT THS TIME RESTING IN BED. CALL LIGHT IN REACH BED ALARM ON.
[2023-03-10 07:29] VITALS: BP 117/61
--- NOTE | 2023-03-10 17:15 | NUR ---
SHIFT SUMMARY: PATIENT ALERT AND ORIENTED TO SELF AND PLACED. PATIENT CONTINUES TO BE VERBALLY ABUSIVE TO STAFF. PATIENT DOES NOT USES CALL LIGHT, ANXIOUS AND IMPULSIVE AT TIMES BUT REDIRECTABLE. PATIENT HAS 1:1 SITTER OUTSIDE HIS ROOM FOR SAFETY. PATIENT IS CONTINENCE/INCONTINENCE OF BLADDER AND HAS BEEN AMBULATING TO BATHROOM AND BACK IN BED c 1 ASSIST, GAITBLET AND FWW T/O SHIFT. NO IV ACCESS PER ORDER. PATIENT DENIES CP/PRESSURE, SOB, N/V AND DIZZINESS. PATIENT RECEIVED SCHEDULED MEDS PER EMAR. VITAL SIGNS REVIEWED. BED ALARM ON FOR SAFETY. CALL LIGHT IN REACH.
[2023-03-10 21:29] VITALS: BP 124/68
--- NOTE | 2023-03-11 02:47 | NUR ---
SHIFT SUMMERY, PT AT THIS TIME S RESTING IN BED AND HAS BEEN HELPED TO BR X2. PT SO FAR HAS FALLOWED DIRECTIONS AND NOT BEEN VERABALY ABUSEIVE. FROM TAKING CARE OF PT THE LAST 2 MORNINGS PT IS [facility] AT [facility] NEAR END OF SHIFT PT BECOMES VERABLY AGRESSIVE AND OCCASIONALY TRYING TO HIT STAFF. BED ALRM CAREGIVER SERVICES HOME LIGHT IN REACH.
[2023-03-11 15:08] VITALS: BP 124/72
--- NOTE | 2023-03-11 17:47 | NUR ---
SHIFT SUMMARY MR KUMAR IS ORIENTATED TO SELF AND ABLE TO TELL ME THE DATE. OTHERWISE CONFUSED CONVERSATION, UNAWARE OF WHERE HE IS OR WHY HE IS HERE. HE WAS AGITATED THIS MORNING, USING STRONG OFFENSIVE LANGUAGE TO STAFF, GRABBING STAFF AND THREAENING TO PUNCH STAFF. HE WAS ALSO MPULSIVE, GETTING UP OUT OF BED AND GETTING ANGRY WHEN ASSISTED HE IS VERY UNSTEADY. SITTER CALLED TO BEDSIDE AND HAS BEEN WITH PT FOR MOST OF THIS SHIFT FOR PT SAFETY. PT HAD A VISITOR TODAY WHO SAID SHE IS HIS BEST FRIEND IN [place] AND SHE SAT WITH HIM FOR A WHILE. ASPIRATION PRECAUTIONS ON NECTAR THICK LIQUIDS, TAKING MEDS WHOLE WITH APPLE SAUCE EASILY. C/O FEELING CONSTIPATED, TOOK SENNA AND COLACE THIS AM. DENIES PAIN. WALKS WITH 1 PERSON ASSIST, GAIT BELT AND WALKER. BED LOW, CALL LIGHT IN REACH. BED AND CHAIR ALARMS USED BEFORE SITTER WATCHING PT.
[2023-03-11 20:50] VITALS: BP 116/74
--- NOTE | 2023-03-12 05:00 | NUR ---
NOC SHIFT SUMMARY: SLEPT MOST OF SHIFT. PSA IN ROOM. NO C/O OVERNIGHT. AWAITING GUARDIANSHIP FOR PLACEMENT OPTIONS. BED IN LOW POSTION. CALL LIGHT WITHIN REACH.
[2023-03-12 08:42] VITALS: BP 108/67
--- NOTE | 2023-03-12 16:23 | NUR ---
DAY SHIFT SUMMARY PT A/OX TO SELF. PSA IN ROOM WITH PT AT ALL TIMES. PT PLEASANT AND COOPERATIVE FOR MORNING AND EARLY AFTERNOON. NO ACUTE EVENTS. PT IS C/O OF CONSTIPATION. BOWEL TONES HYPOACTIVE. LUIZA THICKENED PRUNE JUICE TODAY. PT ON BOWEL REGIMINE WITH SOFTNERS IN THE MORNING AND MOM AT NIGHT. PT REFUSED SUPOSITORY--AGREED TO PRUNE JUICE. ENCOURAGED NEED FOR SUPOSITORY IF NO BM BY TOMORROW MORNING. PT NEIGHBOR CAME TO VISIT. PT RECOGNIZED HIM AND WAS COMFORTABLE WITH HIM. AFTER VISIT, NOTED INCREASED CONFUSION AND AGITATION. PT USED CELL PHONE TO DIAL 911 TWICE. ATTEMPTED TO CALM AND REDIRECT PT. ADMIN ONE PRN SEROQUEL. PT TOOK W/OUT INCIDENT. PT EXPRESSING PARNOID THOUGHTS AND IDEAS. CONT TO ENCOURAGE PT HE IS SAFE.
[2023-03-12 16:29] VITALS: BP 118/66
[2023-03-12 20:00] VITALS: BP 116/72
--- NOTE | 2023-03-13 04:42 | NUR ---
NOC SHIFT SUMMARY: PT. IS VERY IMPULSIVE. NO C/O PAIN. SMALL BM THIS AM. MOM/PRUNE JUICE LAST NIGHT. WAITING ON GUARDIANSHIP. BED IN LOW POSITION. CALL LIGHT WITHIN REACH.
[2023-03-13 08:26] VITALS: BP 125/73
--- NOTE | 2023-03-13 11:05 | NUR ---
NILES GONZALEZ WORKPLACED ON THE FRONT OF HIS CHART. CARE ON GOING. CONTINUE POC.
[2023-03-13 14:40] VITALS: BP 115/78
--- NOTE | 2023-03-13 16:00 | NUR ---
POST SEROQUEL PT SITTING UP AT BEDSIDE. DRINKING NECTAR COFFEE. JOVIAL AND ASKING QUESTIONS. CONVERSANT, FUNNY BUT CONFUSED. NOT SLEEPY OR SEDATED AT ALL. CONTINUE POC.
--- NOTE | 2023-03-13 16:26 | NUR ---
EVENING NOTE PT FREQUENTLY UP/DOWN. DOES NOT CALL. CHAIR AND BED ALARM. UP WITH 1 ASSIST AND GAIT BELT/FWW. VERY UNSTEADY. LEANS BACK. DOESN'T TAKE SAFETY CUEING WELL. ARGUES ABOUT HOW TO USE THE FWW. PT LADY FRIEND HERE TODAY. SHE IS CONSTANTLY FUSSING WITH HIM. SHE THINKS SHE'S HELPING. HE JUST GETS MORE AND MORE AGGITATED. CURRENLTY UP IN CHAIR DRINKING NECTAR COFFEE AND WATCHING TV. NO IV. CARE ONGOING.
--- NOTE | 2023-03-14 04:39 | NUR ---
NOC SHIFT SUMMARY: PT. SLEPT MOST OF NIGHT. NIGHTTIME SEROQUEL GIVEN AND ONE DOSE OF PRN. PATIENT WAS ALERT AND ORIENTED X3, NOT TO SITUATION. UP WITH WALKER AND GATIBELT. VERY IMPULSIVE. DOES NOT FOLLOW COMMANDS WELL. NO C/O PAIN. WAITING ON FUNDING FROM GUARDIANSHIP FOR PLACEMENT. BED IN LOW POSITION. CALL LIGHT WITHIN REACH.
[2023-03-14 06:01] VITALS: BP 140/78
[2023-03-14 07:07] VITALS: BP 112/70
[2023-03-14 15:50] VITALS: BP 112/77
--- NOTE | 2023-03-14 19:27 | NUR ---
SHIFT SUMMARY PT AMIABLE AND CHATTING WITH STAFF THIS MORNING. ABOUT 10 PT STARTED BEHAVING IN A PARANOID FASHION AND ACCUSING RECORDS MANAGEMENT DIRECTOR OF CALLING THE SPECIALIST PHYSICIAN ON HIM AND SAYING INAPPROPRIATE THINGS TO HIM. WAS ABLE TO TALK WITH PT AND HE SEEMED TO CALM DOWN. BEHAVIOR STARTED SHORTLY AFTER SEVERAL DRS HAD CAME TO HIS ROOM. HE STATED HE HAD ASKED THEM IF HE CAN GO HOME AND HE SAID THEY DIDN'T ANSWER HIS QUESTIONS. FELL ASLEEP FOR A COUPLE HOURS AND WAS AGREEABLE AND COOPERATIVE ONCE HE WOKE UP, ALLOWING RECORDS MANAGEMENT DIRECTOR TO WORK WITH HIM AGAIN. THIS EVENING HIS FRIEND CAME TO VISIT AND BROUGHT PTS DOG TO VISIT. PT CALLED 911 AFTER FRIEND LEFT AND WAS TELLING THEM 2 GIRLS WERE IN HIS HOUSE AND HAD KIDNAPPED HIM. PHONE REMOVED FROM PTS HANDS AND CLARIFICATIONS MADE. PT ANGRY AND STATING SHE SHOULDN'T HAVE DONE THAT. REMINDED PT HE WAS IN HIS ROOM BUT NOT AT HIS HOME. PT UPSET AND SAID PLEASE LEAVE. BED ALARM ON AND REMINDED PT IF HE GOT UP WE WOULD BE BACK TO KEEP HIM SAFE FROM FALLING. IMMEDIATELY SAID HE NEEDED TO USE THE RESTROOM AND AGREEABLE TO HELP.
--- NOTE | 2023-03-15 04:43 | NUR ---
SHIFT SUMMARY PT LAYING IN BED DURING BEDSIDE REPORT, PT AGITATED AND HALLUCINATING AND CONFUSED, PT BELIEVES THAT HE IS AT HOME AND ALL THE STAFF HAVE BROKE IN TO HOUSE AND IS DEMANDING THAT WE ALL LEAVE OR HE WILL CALL THE POLICE, REORIENTED PT MULTIPLE TIMES T/O SHIFT- PT TOOK SCHEDULED MEDS CRUSHED IN APPLE SAUCE WITHOUT PROBLEMS- PT IMPULSIVE T/O NIGHT- PT UP TO SIDE OF BED AND SET OFF ALARM T/O NIGHT- ASSISTED WITH HELPING PT OUT OF BED WITH FWW- PT SLOW TO START AND THEN WALKS AT FAST PACE ON FRONT OF FEET- GAIT BELT LEFT ON PT TO ASSIST WTIH MOVEMENT - PT PULLS ARM BACK LIKE HE IS GOING TO HIT THIS RN - REMIND PT MULTIPLE TIMES TO NOT HIT AT STAFF- PT CUSSING AT STAFF TO GET OUT OF HIS ROOM PT REFUSED VITALS- SAFETY MEASURES IN PLACE
[2023-03-15 08:39] VITALS: BP 125/75
--- NOTE | 2023-03-15 15:06 | NUR ---
Spiritual Care Visit. Pt. is awake and sitting up in a chair when he welcomes my visit. Pt. is pleasant, but displays evidence of confusion. Facilitate a life review and listen with empathy and compassion. Pt. is unsettled about transportation home. Prayed with Pt. Pt. verbalized gratitude for the spiritual care visit.
[2023-03-15 15:17] VITALS: BP 120/69
--- NOTE | 2023-03-15 18:39 | NUR ---
SUMMARY- PT ALERT TO SELF ONLY. PT AGRESSIVE AND AGITATED THIS AM AND BECAME MORE DIRECTABLE AFTER AM MEDS INCLUDING SEROQUIL. PT SAT UP IN CHAIR MOST OF THE DAY. SET OFF CHAIR ALARM MULT TIMES, BUT FREQ SAT BACK DOWN BECAUSE OF INABILITY TO STAND UP ALL THE WAY. PT AMBULATED IN CRONIN WITH STAFF X2 DOWN THE CRONIN AND BACK WITH A SHUFFELING GAIT. PT ADMIN SEREQUEL Q4 PER PRN SCHEDULE FOR FREQ RESTLESSNESS AND IMPULSIVITY. A FEW TIMES STAFF HAD TO TALK PT DOWN FROM TRYING TO LEAVE WITH HIS GIRLFRIEND THIS PM. PT WAS DIRECTABLE WITH FIRM DIRECTION AND REPETATIVE EXPLANATION. PT EATS VERY LITTLE. ENCOURAGED FLUIDS, TAKES FLUIDS IN SPARINGLY. EXCEPT HE LOVES HIS COFFEE IN THE AM AND DRINKS ABOUT 3 1/3 CUPS. WILL REPORT TO NOC RN
[2023-03-15 19:40] VITALS: BP 112/69
[2023-03-16 04:41] VITALS: BP 131/51
--- NOTE | 2023-03-16 05:59 | NUR ---
SHIFT SUMMARY PT SITTING UP IN CHAIR DURING REPORT FROM ULISES ALCAZAR- PT SET OFF CHAIR ALARM - PT ASSISTED TO BR WITH STAFF- PT TOOK SCHEDULED HS MEDS CRUSHED IN APPLE SAUCE, PT AT FIRST REFUSED TO TAKE THE MEDICATION- ENOURAGED PT TO TAKE MEDS, PT TOOK THE MEDS FINALLY- PT SLEPT T/O NIGHT= PT SET OFF THE BED ALARM WHEN NEEDING TO USE RESTROOM, PT ASSISTED TO RESTROOM, PT BEHAVIOR COMPARED TO LAST HS SHIFT MORE COOPERATIVE AND NOT PARANOID AND NO CUSSING AT STAFF BED LOW POSITION, CALL LIGHT WITHIN REACH, BED ALARM IN PLACE
[2023-03-16 07:13] VITALS: BP 117/61
[2023-03-16 15:03] VITALS: BP 132/75
--- NOTE | 2023-03-16 18:50 | NUR ---
PT IS ALERT ORIENTED TO SELF AND PLACE. THE PT WAS UP IN THE CHAIR AND ATTEMTED TO GET OUT OF THE T/O THE DAY. PT WAS GIVEN SERAQUEL THIS AM FOR AGITATION, BUT HAS BEEN EASILY REDIRECTED TODAY SINCE THEN. THE PT AAPEARS TO BE BREATHING EASILY WITHOUT OXYGEN. THE PT DENIED ANY PAIN TODAY. THE PTS GIRLFRIEND WAS IN TO VISIT WITH HIM TODAY. CALL LIGHT IN REACH. CHAIR ALARM ON.
[2023-03-16 21:08] VITALS: BP 108/61
--- NOTE | 2023-03-17 04:16 | NUR ---
Shift Summary Pt distrustful and anxious at the start of the shift, frequently getting out of the chair and wanting to go into the kitchen. Reoriented to place multiple times. He is unsteady on his feet and requires 1 assist with FWW when up. Pt felt better around 2300 and became cooperative with care and was soon asleep. He slept well t/o the night. Pt on puree diet, meds whole in applesauce.
[2023-03-17 05:42] VITALS: BP 98/58
[2023-03-17 07:12] VITALS: BP 106/63
[2023-03-17 15:23] VITALS: BP 121/73
--- NOTE | 2023-03-17 16:15 | NUR ---
CALLED PHARMACY- PT SINMENT WAS NOTED TO BE ER TAB AND CAN NOT BE CRUSHED. THE PT WAS BECOMING MORE AGGITATED AND WAS NOT ALLOWING STAFF TO MEDICATE. PRN MEDS WERE GIVEN AT 1200 FOR AGITATION. THIS SEEMED TO HELP FOR A LITTLE WHILE. PT BECAME AGGITATRED FURTHER THE SO THAT WAS AT THE BEDSIDE STARTED TO BECOME MORE CONFUSED. SHE BEGAN TRYING TO GET THE PT UP (UNSAFELY) DESPITE STAFF TELLING HER THIS WAS NOT A SAFE THING TO DO. PT BECAME MORE AGGITATED TELLING STAFF HE WAS LEAVING. PT HAS A LEGAL GUARDIAN, CYCLE REPAIRER ATTEM[PTED TO CONTACT THE PT COURT APPOINTED GUARDIAN. THERE WAS NO ANSWER. WAS NOTIFIED OF THE ISSUE. PT NOT CURRENTLY ON A 2MD HOLD. ORDER RECIEVED FOR MAHNAZ CASTRO. SECURITY CALLED FOR A STANDBY FOR SAFETY THE PT WAS BECOMING AGRESSIVE IN HIS LANGUAGE AND MANNERISIMS. CHARGE, CLINICAL COORDINATOR, NURSING DISPLAY ASSOCIATE AND LEGAL WERE ALL CONTACTED TO DETERMINE PROPER COURSE OF ACTION. PT WAS ADIMANT HE WAS LEAVING, RIGHT NOW. PT GOT INTO A WC AND HIS SO TOOK HIM OUT OF THE FACILITY. NOTIFIED THE PT LEFT AMA.
== END 2023-03-17 16:11 | disposition left against medical advice (07) | DRG 177 ==
LOC: ER 06:50 → MEDS 11:06
PROVIDERS: Emergency Medicine; Family Medicine; ADMIT Hospitalist
DX: J69.0 Pneumonitis due to inhalation of food and vomit (principal); J96.01 Acute respiratory failure with hypoxia; M62.82 Rhabdomyolysis; F02.818 Dementia in other diseases classified elsewhere, unspecified severity, with other behavioral disturbance; Z66 Do not resuscitate; G20.A1 Parkinson's disease without dyskinesia, without mention of fluctuations; G30.9 Alzheimer's disease, unspecified; R13.12 Dysphagia, oropharyngeal phase; F10.11 Alcohol abuse, in remission; F12.11 Cannabis abuse, in remission; R56.9 Unspecified convulsions; M25.571 Pain in right ankle and joints of right foot; Z53.29 Procedure and treatment not carried out because of patient's decision for other reasons; Z91.51 Personal history of suicidal behavior; Z60.2 Problems related to living alone
CPT/HCPCS: 36415; 71045; 73610; 80048; 80053; 81001; 82550; 84145; 85025; 92526; 92610; 96361; 96365; 96366; 96372; 96376; 97110; 97112; 97116; 97129; 97162; 97166; 97530; 97535; 99285-25; A9270; G0008; G0378; J0295; J1650; J7050; J7120; Q2036

== ENCOUNTER 2023-03-21 15:12 | Observation (INO) | payer MEDICARE ==
[~2023-03-21] VITALS: Ht 180.3 cm; Wt 79.3 kg
[2023-03-21 15:44] LABS: Source, Urine Clean Catch
[2023-03-21 15:48] LABS: BASOPHILS ABSOLUTE AUTO 0.02 K/mm3 (0.00-0.23); BASOPHILS PERCENT AUTO 0 % (0-2); EOSINOPHILS ABSOLUTE AUTO 0.01 K/mm3 (0.00-0.68); EOSINOPHILS PERCENT AUTO 0 % (0-6); Hemoglobin 13.4 g/dL (13.5-17.5); IMMATURE GRAN ABSOLUTE AUTO 0.02 K/mm3 (0.00-0.10); IMMATURE GRAN PERCENT AUTO 0 % (0-1); LYMPHOCYTES PERCENT AUTO 10 % (21-46); MONOCYTES ABSOLUTE AUTO 0.38 K/mm3 (0.16-1.47); MONOCYTES PERCENT AUTO 5 % (4-13); Mean Corpuscular HGB 30.3 pg (26.0-34.0); Mean Corpuscular HGB Conc 32.7 g/dL (31.5-36.5); Mean Corpuscular Volume 93 fL (80-100); Mean Platelet Volume 9.5 fL (9.1-12.4); NEUTROPHILS ABSOLUTE AUTO 6.21 K/mm3 (1.96-9.15); NEUTROPHILS PERCENT AUTO 85 % (41-73); Platelet Count 211 K/mm3 (150-400); RDW Coefficient Variation 14.4 % (11.7-14.2); RDW Standard Deviation 48.9 fL (35.1-46.3); Red Blood Cell Count 4.42 M/mm3 (4.30-5.90); White Blood Cell Count 7.34 K/mm3 (4.00-11.30)
[2023-03-21 15:51] LABS: Bilirubin, Urine Neg (Neg); Blood, Urine 1+ (Neg); Glucose Qualitative, Urine Neg (Neg); Ketones, Urine 2+ (Neg); Leukocyte Esterase, Urine 1+ (Neg); Nitrite, Urine Neg (Neg); Protein, Urine 1+ (Neg); Urobilinogen, Urine 1+ (Normal)
[2023-03-21 15:58] LABS: Appearance, Urine Clear (Clear); Color, Urine Yellow (P-Yellow)
[2023-03-21 16:00] LABS: Albumin, Blood 3.6 g/dL (3.4-5.0); Albumin/Globulin Ratio 1.3 (0.8-1.8); Bilirubin, Total 0.9 mg/dL (0.1-1.0); Bun/Creatinine Ratio 15.4 (12.0-20.0); Calcium, Blood 8.9 mg/dL (8.5-10.1); Creatinine, Blood 0.91 mg/dL (0.60-1.20); Globulin, Blood 2.8 g/dL (2.2-4.0); Potassium, Blood 3.8 mmol/L (3.5-5.5); Total Protein, Blood 6.4 g/dL (6.4-8.2)
[2023-03-21 16:01] LABS: Bacteria Few /hpf; Hyaline Casts 0-2 /lpf (0-2); Squamous Epithelial Cells Rare /hpf (Few)
[2023-03-22 19:40] VITALS: BP 118/66
--- NOTE | 2023-03-22 22:48 | NUR ---
REPORT RECEIVED VERIFED PT A/O X1 CONFUSED AND CANT SAY WHERE HE IS AT BUT CAN RECALL HIS HISTORY UP UNTIL HIS LAST HOSPITAL VISIT. PT WANTS TO LEAVE BUT IS COOPERATIVE AT THIS POINT. SWALLOW OF APPLE SAUCE CURRENTLY INTACT HAD NO S/S OF ASPIRATION OR CHOCKING. END PT TO STAY IN BED AND GO TO SLEEP. SITTER AT BEDSIDE
[2023-03-23 02:54] VITALS: BP 115/72
[2023-03-23 02:55] VITALS: BP 115/72
[2023-03-23 07:33] VITALS: BP 131/68
[2023-03-23 16:16] VITALS: BP 109/61
--- NOTE | 2023-03-23 17:37 | NUR ---
SHIFT SUMMARY PT AOX1, 1 ASSIST WITH THE GB AND FWW TO THE BR. PT HAS BEEN LABILE THIS SHIFT, AT TIMES COOPERATING AND AT TIMES DEFIANT OF THE PROCESS. IRRITATED AT TIMES, MEDICATED PER THE EMAR. UP IN THE CHAIR OFF AND ON THIS SHIFT, AT TIMES IMPULSIVELY. SITTER AT THE BS. NO C/O PAIN, CP, PRESSURE, N OR V. SMALL STOOLS T/O THE DAY, MEDICATED PER THE EMAR. PARANOID, ALWAYS WORRIED ABOUT WHERE IS WALLET AND KEYS ARE LOCATED. CALL LIGHT WITHIN REACH, BED IN THE LOWEST POSITION. WILL REPORT TO ONCOMING NURSE.
[2023-03-23 20:36] VITALS: BP 107/69
--- NOTE | 2023-03-23 22:46 | NUR ---
report received verified, pt confused and a little levy, if you are patient with him he becomes cooperative. assisted pt back to bed from chair. pt does not know own limitations, sitter at bedside. pt asked to use urinal and was assisted. medicated per mar now pt sleeping.
[2023-03-24 04:27] VITALS: BP 106/63
[2023-03-24 07:35] VITALS: BP 109/66
[2023-03-24 16:00] VITALS: BP 109/66
--- NOTE | 2023-03-24 17:13 | NUR ---
SHIFT SUMMARY PATIENT ALERT AND INTERACTIVE WITH STAFF. PATIENT COOPERATIVE WITH CARE AND AMBULATED IN CRONIN WITH ONE PERSON ASSIST AND WALKER. PATIENT TENDS TO WALK ON TOES. PATIENT HAS HX OF [employer]. COURT APPOINTED GUARDIAN HERE TODAY AND ATTEMPTED TO VIEW WHAT WAS IN PATIENT'S WALLET. PATIENT REFUSED TO ALLOW GUARDIAN TO VISUALIZE WALLET. PATIENT PARANOID AFTER GUARDIAN LEFT AND HAD STAFF TAKE WALLET INTO BATHROOM WHEN PATIENT WOULD AMBULATE INTO THE BATHROOM TO BE SURE SHE DID NOT COME BACK AND LOOK IN HIS WALLET. [facility] ALSO CAME TO EVALUATE PATIENT. PATIENT IRRITATED WITH QUESTIONING AND ASKED THEM TO LEAVE. PATIENT VERBALIZING DESIRE TO GET FOOD. REMINDED PATIENT OF RISKS FOR ASPIRATION AND NEED FOR PUREED FOOD. PATIENT EASILY IRRITABLE WHEN DISCUSSING DIET.
[2023-03-24 19:36] VITALS: BP 129/69
[2023-03-25 02:23] VITALS: BP 110/64
--- NOTE | 2023-03-25 05:28 | NUR ---
REPORT RECEIVED VERIFIED. NO CHANGE IN PT CONDITION SEEMS VERY TIRED AND MORE AGREEABLE TODAY. SITTER AT BEDSIDE. PT ASSISTED SEVERAL TIMES IN AND OUT OF BED TO USE THE RESTROOM. WITH TIME PT ABLE TO AMBULATE WITH FRONT WHEEL WALKER BUT NEEDS STANDBY ASSIST. NO SIGNIFICANT CHANGES IN PT CONDITIONL.
[2023-03-25 08:02] VITALS: BP 109/65
[2023-03-25 15:02] VITALS: BP 117/72
--- NOTE | 2023-03-25 18:09 | NUR ---
SUMMARY- NO ACUTE EVENTS THIS SHIFT. PT ORIENTED TO SELF. 1:1 WITH CLINICAL SITTER. X1 ASSIST TO BATHROOM. NO COMPLAINTS THIS SHIFT.
[2023-03-25 19:41] VITALS: BP 113/74
[2023-03-26 03:13] VITALS: BP 109/66
--- NOTE | 2023-03-26 06:21 | NUR ---
SUMMARY: PT ORIENTED TO SELF PRIMARILY BUT OCCASIONALLY IS AWARE OF BEING IN HOSPITAL. HE'S IMPULSIVE AND CAN BE CONTANKEROUS AT TIMES SO HAS 1:1 CLINICAL SITTER FOR FREQ CARE NEEDS AND FALL PREVENTION. HE'S 2PA W/FWW AND GB AND REQ'S URINAL ASSIST PRN. PT CALLS OUT FOR ASSIST OFTEN D/T URINARY FREQUENCY W/URGENCY. BED ALARM ON FOR SAFETY. MEDS RECIEVED W/O DIFFICULTY AND HS SEROQUEL WAS PROVIDED PRN TO PROMOTE SLEEP/REST. GUARDIANSHIP IS IN PLACE AND PLACEMENT IS PENDING. NO ACUTE CHANGES, VSS/AFEBRILE. WCTM AND REPORT TO DAY RN.
[2023-03-26 07:26] VITALS: BP 120/71
[2023-03-26 16:35] VITALS: BP 107/62
--- NOTE | 2023-03-26 18:08 | NUR ---
SUMMARY- NO ACUTE EVENTS THIS SHIFT. NO CHANGES WITH PT THIS SHIFT.
[2023-03-26 20:19] VITALS: BP 109/62
[2023-03-27 03:10] VITALS: BP 100/61
--- NOTE | 2023-03-27 04:20 | NUR ---
SHIFT SUMMERY. PT RESTING OFF AND ON AWAKING TO VOID. PT BEHAVING VERY WELL TONIGHT. PT SEEMS TO LIKE SITTER AND WORKS WELL WITH HER. CALL LIGHT IN REACH SITTER AT BEDSIDE.
[2023-03-27 07:37] VITALS: BP 115/69
--- NOTE | 2023-03-27 11:44 | NUR ---
Placed call to pt guardian Phuong Maya, left message regarding pt's diet. The patient is unhappy about it, and does not want to adhere to restrictions.
[2023-03-27 15:52] VITALS: BP 109/62
--- NOTE | 2023-03-27 17:45 | NUR ---
SUMMARY- NO ACUTE EVENTS THIS SHIFT. NO CHANGES WITH PT. X1 ASSIST TO BATHROOM. AAOX1-3. NO MAJOR AGGRESSIVE BEHAVIOR THIS SHIFT.
[2023-03-27 19:27] VITALS: BP 110/62
[2023-03-28 04:19] VITALS: BP 127/74
--- NOTE | 2023-03-28 04:51 | NUR ---
SHIFT BARBIEY, PT REATING IN BED, PT STANDING AT BED SIDE TO VOID THEN GOING BACK TO SLEEP. PT HAS BEEN VERY CROSS THIS NIGHT WITH ALL WHO HAVE TRYED TO TAKE CARE OF HIM. SITTER IN ROOM WITH PT. CALL LIGHT IN REACH .
[2023-03-28 07:32] VITALS: BP 105/67
--- NOTE | 2023-03-28 08:13 | NUR ---
PT OBSERVED TO HAVE RAPID HEART RATE EARLY THIS AM. RN NOTIFIED. AROUND 0800 PT HAD BM WITH NO RESOLVE TO RAPID RATE. RN NOTIFIED AND PATIENT SITTING IN CHAIR WITH NO NEEDS.
--- NOTE | 2023-03-28 08:40 | NUR ---
PATIENT WITH TACHYCARDIA IN THE 130'S. SPOKE WITH DR. BA, EKG AND TELEMETRY ORDERED. ALSO RECEIVED AN ORDER FOR METOPROLOL 12.5 MG PO.
--- NOTE | 2023-03-28 10:31 | NUR ---
PATIENT REMAINS IN A-FIB ON TELE WITH RATE NOW IN THE 80'S PER KENDALL SECONDS INSPECTOR.
[2023-03-28 10:58] LABS: Bun/Creatinine Ratio 10.8 (12.0-20.0); Calcium, Blood 8.6 mg/dL (8.5-10.1); Creatinine, Blood 0.92 mg/dL (0.60-1.20); Magnesium, Blood 2.4 mg/dL (1.6-2.4); Thyroid Stimulating Hormone 1.99 uIU/mL (0.360-4.800)
[2023-03-28 15:40] VITALS: BP 107/84
--- NOTE | 2023-03-28 15:46 | NUR ---
PT AMBULATED HALLS W/ ASSISTANCE FROM 1:1 WELDING MACHINE OPERATOR HELPER GAS AND RN. PATIENT STATING "I WANNA WALK ON MY OWN WITHOUT WALKER". PT EDUCATED ON IMPORTANCE OF FWW AND GAITBELT FOR SAFETY WHILE AMBULATING. PT UPSET WHEN NOT BEING ABLE TO STAND W/O ASSISTANCE FROM STAFF. RN NOTIFIED OF AGITATION. NO NEEDS, CALL LIGHT WITHIN REACH AND CLINICAL SITTER AT DOORWAY.
--- NOTE | 2023-03-28 17:51 | NUR ---
PATIENT A/OX2 THIS SHIFT. STARTED THIS SHIFT TACYCARDIAC AND WAS PLACED ON TELEMETRY. PATIENT WAS A-FIB WITH RVR WITH RATE IN THE 130'S. METOPROLOL PO GIVEN AND PATIENT CONVERTED TO SR WITH A RATE OF 60-80'S. PATIENT WAS ASYMPTOMATIC DURING EPISODE. SITTER AT BEDSIDE FOR SAFETY PATIENT IS VERY IMPULSIVE AND A HIGH FALL RISK. WALKD IN HALLS MULTIPLE TIMES. SEROQUEL GIVEN X2 TODAY FOR AGITATION WITH GOOD CONTROL. SKIN INTACT. CONTINENT OF BOWEL AND BLADDER. AWAITING PLACEMENT.
[2023-03-28 19:18] VITALS: BP 92/53
[2023-03-28 20:55] VITALS: BP 107/60
[2023-03-29 02:54] VITALS: BP 97/56
--- NOTE | 2023-03-29 04:48 | NUR ---
SHIFT SUMMERY, PT RESTING IN BED, WITH SITTER IN ROOM . PT SEEMS TO BE SLEEPING FAIRLY WELL AWAKING OCCASIONLY TO VOID. PT IN A LITTLE BETTER MOOD THEN THE NIGHT BEFORE. PT BEING COPERATIVE SO FAR THIS NIGHT.
[2023-03-29 07:36] VITALS: BP 102/62
--- NOTE | 2023-03-29 13:58 | NUR ---
Spiritual Care Visit. Pt. is awake in bed when he welcomes my visit. 1:1 sitter is present. Pt. verbalized that he recognized this sas statistical programmer but could not recaall my name. Pt. is overall pleasant though occasionally confused. Consider matters of Pts. health and home situation. Pt. is unsettled about not being able to return to his home. Listen with empathy and a calming presence. Considered matters of his community and his scientology. Pt. displays evidence of not being fully aware pf his limitations. Prayed with Pt. Pt. verbalized gratitude for the spiritual care visit.
[2023-03-29 15:47] VITALS: BP 98/58
--- NOTE | 2023-03-29 16:35 | NUR ---
NO NEW CONCERNS THIS SHIFT. PATIENT WITH SITTER AT BEDSIDE DUE TO HIGH FALL RISK. PATIENT TOLERATING PUREE DIET. CONTINENT OF BOWEL AND BLADDER. VSS, ON RA. SR/SB ON TELE, CARDIAC MEDICATIONS CHANGED BY . RICHARD FOR DVT PROPHYLAXIS. COOPERATIVE WITH CARE, ABLE TO MAKE NEEDS KNOWN. AWAITING [facility] PLACEMENT.
[2023-03-29 20:00] VITALS: BP 113/57
--- NOTE | 2023-03-30 05:15 | NUR ---
SUBSTATION OPERATOR CHIEF SUMMARY VSS. AT SHIFT COMMENCE BECAME IRRITATED WHEN DEMANDING TO GO TO THE BATHROOM. REFUSED THE URINAL, THEN WHEN BEING ASSISTED TO THE BATHROOM, WA UNSTEADY WITH THE WALKER AND WHEN THE STAFF MEMBER STABILIZED HIM, BECAME ANGRY AND INCREASED IN AGITATION. STAFF ASSISTED HIM BACK TO BED AND ISTRUCTED PT TO UES CALL LIGHT AND THE URINAL FOR HIS SAFETY. LATER, PT CALLED STAFF MEMBER IN TO HIS ROOM AND APPOLOGIZED. HAS BEEN USING URINAL SINCE. HAS BEEN RESTING QUIETLY WITH OCCASIOINAL INTERRUPTION. MED TELE SINUS APRYL, OCCASIONAL DROPPING INTO THE 30'S. PT ASYMPTOMATIC. CALL LIGHT IN REACH. WILL CONTINUE TO MONITOR
--- NOTE | 2023-03-30 05:33 | NUR ---
SITTER AT BEDSIDE FOR SAFETY THROUGHOUT NIGHT. CALL LIGHT IN REACH
[2023-03-30 07:29] VITALS: BP 105/61
--- NOTE | 2023-03-30 08:11 | NUR ---
RECIEVED CALL FROM [facility] STATING THAT PT'S HR HAS BEEN BRADYING DOWN TO THE 30'S. TECH STATES THAT THEY REVIEWED PT'S TRENDS AND PT HAS HAD BRADYCARDIA AT NIGHT, BUT NO LOWER THAN THE 40'S. CALLED HOSPITALIST AND UPDATED, RECEIVED VERBAL ORDER TO HOLD AM DOSE OF COREG.
[2023-03-30 17:54] VITALS: BP 105/67
[2023-03-30 19:25] VITALS: BP 121/76
--- NOTE | 2023-03-30 19:42 | NUR ---
SHIFT SUMMARY: ASHTYN IS A&OX2. VSS THIS SHIFT, HEART RATE IN THE 60-70'S THROUGHOUT THE DAY PER VAC PRESS OPERATOR. PT IS TOLERATING PO INTAKE WELL, EDUCATED ON ASPIRATION PRECAUTIONS TODAY. BED AND CHAIR ALARMS IN PLACE WELL 1:[address], PT ABLE TO USE THE URINAL AND BSC. PT HAS DENIED DIZZINESS/LIGHTHEADEDNESS. HE IS LYING IN BED WITH THE CALL LIGHT IN REACH. REPORT WAS GIVEN TO WELFARE ADVISER RN.
[2023-03-31 03:40] VITALS: BP 110/71
--- NOTE | 2023-03-31 03:50 | NUR ---
FIREMAN HELPER SUMMARY VSS. INTERMITTENT AGITATION AT SHIFT START. VOICED FRUSTRATION RE STAFF ENCOURAGING HIM TO MAINTAIN SAFETY. STAFF DISCUSSED HIS UNSTEADINESS, AND THUS INABILITY TO JUST GET OUT OF BED AND WALK ABOUT ROOM, ETC. AGITATION INCREASED, TOLERATED MEDS AT HS, INCLUDING SERAQUEL. NURSE DISCUSSED MEDS AND PT CONDITION AND ENCOURAGED HIM TO SPEAK WITH THE MD IN THE AM RE HIS FRUSTRATIONS. EVENTUALLY PT CALMED AND COMPLIED WITH REQUESTS. HAS BEEN RESTING WITH FEW INTERRUPTIONS THROUGH SHIFT. ASSISTED WITH URINAL A FEW TIMES CALL LIGHT IN REACH. RAILS UP X 2 FOR SAFETY. WILL CONTINUE TO MONITOR
[2023-03-31 07:51] VITALS: BP 112/63
--- NOTE | 2023-03-31 16:29 | NUR ---
NO ACUTE CHANGES THIS SHIFT. PT HAS BEEN CALM AND COOPERATIVE WITH CARES. HE HAS REMAINED IMPULSIVE AND DIFFICULT TO KEEP IN CHAIR OR BED WHEN ATTEMPTING TO GET UP. DENIES PAIN, CHEST PAIN, SOB. SITTER IS SITTING OUTSIDE ROOM. PT IS ABLE TO MAKE NEEDS KNOWN BUT DOES NOT CALL APPROPRIATELY. HE IS ALERT AND ORIENTED TO SELF AND PLACE, VERY FORGETFUL. PILLS CRUSHED IN APPLE SAUCE. USE OF URINAL. VERY WEAK AND UNSTEADY GAIT. 1-2 PERSON ASSIST WITH FWW AND VERBAL DIRECTION NEEDED. NO BM THE SHIFT.
--- NOTE | 2023-03-31 19:23 | NUR ---
PATIENT NOT COOPERATIVE AT THIS TIME. REFUSING ASSISTANCE FROM CHAIR TO BED. YELLING AT STAFF. TWO ASSIST W/GB ALLOWED. REFUSING TO STAY IN BED. SITTER 1:1
--- NOTE | 2023-03-31 19:56 | NUR ---
PATIENT GETTING OUT OF BED ON HIS OWN. TWO ASSIST WITH FWW/GB. NOT ABLE TO FOLLOW DIRECTIONS OR ORIENT AT THIS TIME. BACK IN BED. SITTER 1:1.
--- NOTE | 2023-04-01 04:02 | NUR ---
SHIFT SUMMARY PATIENT AGITATED FIRST PART OF SHIFT. NOT COOPERATIVE AND NOT ABLE TO FOLLOW DIRECTIONS. PATIENT YELLING AT STAFF AND REFUSING ASSISTANCE FROM CHAIR TO BED. AXOX 2 HX OF ADVANCED DEMENTIA. SCHEDULE SEROQUEL 100 MG GIVEN AND PATIENT LESS AGITATED SECOND PART OF SHIFT. TWO MAX ASSIST WITH GB/FWW UNSTEADY AND IMPULSIVE. SITTER 1:1 UNTIL 23:30 AND DC'D. MED CRUSHED IN APPLESAUCE. PIV INTACT. TELE MONITOR SB 59. RESTED ON/OFF. DENIES CHEST PAIN, SOB, AND N/V. CALL LIGHT IN REACH. BED IN LOWEST POSITION AND ALARM ACTIVATED. WILL CONTINUE TO MONITOR UNTIL DAY SHIFT NURSE ASSUMES CARE.
[2023-04-01 07:45] VITALS: BP 104/65
--- NOTE | 2023-04-01 16:17 | NUR ---
PT IS ALERT AND ORIENTED TO SELF. VERY FORGETFUL. STAND PIVOT FROM BED TO CHAIR. VERY UNSTEADY GAIT. 2 PERSON WITH FWW AND GAIT BELT. IMPULSIVE. ABLE TO MAKE NEEDS KNOWN. PT HAS BEEN VERY ANXIOUS TODAY. IRRITABLE. NO ACUTE CHANGES. BED IS IN THE LOWEST POSITION WITH CALL LIGHT IN REACH. SITTER IS OUTSIDE DOOR.
[2023-04-01 16:54] VITALS: BP 108/76
[2023-04-01 19:06] VITALS: BP 105/51
[2023-04-02 01:54] VITALS: BP 112/63
--- NOTE | 2023-04-02 02:14 | NUR ---
TELEMETRY EVENT: FIVE BEAT RUN OF V-TACH. PCU CHARGE TELE MONITOR REPORTS BACK TO SB HR 48-58. WCTM.
--- NOTE | 2023-04-02 04:15 | NUR ---
SHIFT SUMMARY PATIENT HAD NO ACUTE CHANGES. DAY RN REPORTS PRN SEROQUEL WAS GIVEN X TWO ON DAYS AND HELP WITH PATIENT BEING LESS AGITATED FOR BEAM SEALER. ALERT TO SELF AND TWO ASSIST W/FWW AND GB. USES URINAL AT BEDSIDE WITH ASSIST. DENIES CHEST PAIN, SOB, AND N/V. VSS/AFEBRILE. SITTER 1:1. TELE MONITOR REPORTED 5 BEAT RUN OF V-TACH, FIRST EVENT. OTHERWISE SB 48-58. PIV REMAINS INTACT. SLEPT MOST OF THE SHIFT. CALL LIGHT IN REACH. BED IN LOWEST POSITION AND ALARM ACTIVATED. WILL CONTINUE TO MONITOR UNTIL DAY SHIFT NURSE ASSUMES CARE.
[2023-04-02 07:44] VITALS: BP 112/63
[2023-04-02 16:25] VITALS: BP 116/70
--- NOTE | 2023-04-02 17:02 | NUR ---
NO ACUTE CHANGES THIS SHIFT. PT DID SEEM TO BE MORE ANXIOUS AND IRRITATED THIS SHIFT. HE WOULD TALK ABOUT FEELING LIKE HE WAS A BURDEN TO US ESPECIALLY DURING THE HOLIDAY. HE IS IMPULSIVE ORIENTED TO SELF AND CONFUSED. REQUIRING SITTER. ALERT AND SITTING UP IN CHAIR. TELE MONITOR. SINUS APRYL.
[2023-04-02 19:40] VITALS: BP 112/66
[2023-04-03 01:09] VITALS: BP 122/59
--- NOTE | 2023-04-03 04:13 | NUR ---
SHIFT SUMMARY PATIENT HAD NO ACUTE CHANGES. AXOX 2 AND 1-2 ASSIST TO BR. USES URINAL AT BEDSIDE W/ASSIST. SITTER 1:1 IMPULSIVE. PIV REMAINS INTACT.TELE MONITOR SB 59. VSS/AFEBRILE. DENIES CHEST PAIN, SOB, AND N/V. LESS AGITATED THIS SHIFT. CALL LIGHT IN REACH. BED IN LOWEST POSITION AND ALARM ACTIVATED. WILL CONTINUE TO MONITOR UNTIL DAY SHIFT NURSE ASSUMES CARE.
[2023-04-03 07:19] VITALS: BP 106/66
[2023-04-03 15:04] VITALS: BP 130/64
--- NOTE | 2023-04-03 16:06 | NUR ---
SHIFT SUMMARY PT A&O TO SELF AND SURROUNDING. PT IS COOPERATIVE WITH CARE BUT FORGETS LIMITATIONS. 1 TO 1 SITTER OBSERVING PT. VSS. NO ACUTE EVENTS OCCURED DURING THE SHIFT. PT WAS LEFT IN A POSITION OF SAFETY WITH FALL PRECAUTIONS IN PLACE AND CALL LIGHT WITHIN REACH.
--- NOTE | 2023-04-04 04:29 | NUR ---
SHIFT SUMMARY ASHTYN WAS ALERT AND ORIENTED X 3-4 ON ASSESSMENT. HE IS VERY LABILE AND OCCASIONALLY UNCOOPERATIVE WITH CARE. NO ACUTE EVENTS TONIGHT, NO CHANGES IN CONDITION OBSERVED. PT HAS A 1:1 SITTER AT THIS TIME, PT HAS BEEN DIRECTIBLE AND HAS NOT BEEN IMPULSIVE SO FAR THIS SHIFT. WILL CONTINUE TO MONITOR. PT RESTING IN BED AT A LOW POSITION WITH THE CALL LIGHT IN REACH, SITTER OBSERVING.
[2023-04-04 07:27] VITALS: BP 110/62
[2023-04-04] MEDS ORDERED: SINEMET 25-1001 EAC1 PO (10:52)
[2023-04-04] MEDS ORDERED: CARV3.125 PO (10:52)
[2023-04-04] MEDS ORDERED: QUET100 PO (10:53)
[2023-04-04] MEDS ORDERED: Lisinopril2.5 MG PO (10:53)
[2023-04-04] MEDS ORDERED: XARELTO20 MG PO (10:54)
[2023-04-04] MEDS ORDERED: DOCUZEN 8.6-501 EACH PO (10:55)
[2023-04-04 14:55] VITALS: BP 90/52
--- NOTE | 2023-04-04 16:08 | NUR ---
PT IS A/OX2-3, SELF, SURROUNDINGS, AND AT TIMES THE TIME. THE PT HAS BEEN PLEASANT AND COOPERATIVE WITH THIS RN TODAY. PT WAS TO BE DISCHARGED, HOWEVER, THAT WAS HELD BY THE FACILITY [facility] FOR UNKNOWN REASOSNS. THE PT IS 1 ASSIST UP TO THE BATHROOM TODAY, UNSTEADY ON HIS FEET. CALL LIGHT IN REACH. BED IN THE LOWEST POSITION
--- NOTE | 2023-04-05 04:40 | NUR ---
SHIFT SUMMARY PT A&O TO SELF. PT CONFUSED AND RESISTENT TO CARE TELLING STAFF TO "GET OUT OR I WILL CALL THE POLICE ON YOU FOR TRESPASSING". REDIRECTION ATTEMPTED BUT WAS UNSUCCESSFUL. PT ABLE TO FALL ASLEEP FOR HALF OF THE NIGHT. PT REFUSED MEDICATIONS, BUT AFTER EDUCATION AGREED TO TAKE LEVADOPA/CARBIDOPA AND SEROQUEL. NO IV ORDER OBTAINED. VSS NO ACUTE EVENTS OVERNIGHT. PT LEFT IN A POSITION OF SAFETY WITH APPROPRIATE FALL PRECAUTIONS IN PLACE AND CALL LIGHT IN REACH.
--- NOTE | 2023-04-05 06:24 | NUR ---
PT NEEDED ASSISTANCE WITH VOIDING, WAS UNCOOPERATIVE WITH CARE. PT GRABBED THIS RN'S WRIST WHILE HOLDING THE URINAL AND ATTEMPTED TO FORCEFULLY REMOVE FROM MY HAND. PT WAS UNSTEADY ON HIS FEET DURING ATTEMPT. PT INFORMED OF REQUIREMENTS FOR SAFE ASSISTANCE AND FALL RISKS. AFTER SETTLING PT BACK IN BED, PT ATTEMPTED TO GET OUT OF BED AGAIN. WHEN 1 ON SITTER INFORMED HIM TO NOT STAND UP ALONE, PT STATED "YOU CAN DROP BITCH". TANK CALIBRATOR INFORMED AND PT EDUCATED ON THE HOSPITAL NO TOLERANCE POLICY.
[2023-04-05 07:33] VITALS: BP 108/68
--- NOTE | 2023-04-05 11:20 | NUR ---
PT DISCHARGED PT DISCHARGED TO [facility] VIA WHEELCHAIR. REPORT WAS GIVEN TO [facility] NURSE. BELONGINGS RELEASED TO THE PATIENT.
== END 2023-04-05 10:57 | disposition home or self-care (01) ==
LOC: ER 15:12 → EOR 15:13 → MEDS 15:13 → EOR 15:13 → MEDS 03-22 18:13 → ENPENDDIS 04-04 10:31 → MEDS 04-05 10:57
PROVIDERS: Emergency Medicine; Internal Medicine; ADMIT Internal Medicine
DX: R62.7 Adult failure to thrive (principal); G20.C Parkinsonism, unspecified; F02.818 Dementia in other diseases classified elsewhere, unspecified severity, with other behavioral disturbance; I50.42 Chronic combined systolic (congestive) and diastolic (congestive) heart failure; Z66 Do not resuscitate; I48.91 Unspecified atrial fibrillation; I34.0 Nonrheumatic mitral (valve) insufficiency
CPT/HCPCS: 36415; 80048; 80053; 81001; 83735; 83880; 84443; 84484; 85025; 87086; 92526; 92610; 93005; 93010; 93306; 94762; 96372; 99285; A9270; G0378; J1650

== ENCOUNTER 2023-04-09 18:55 | Emergency (ER) | payer MEDICARE ==
[~2023-04-09] VITALS: Ht 180.3 cm; Wt 72.6 kg
[~2023-04-09 18:55] MED LIST changes: +CARV3.125 PO; +DOCUZEN 8.6-501 EACH PO; +Lisinopril2.5 MG PO; +SINEMET 25-1001 EAC1 PO; +XARELTO20 MG PO
[2023-04-09 20:32] VITALS: BP 97/52
== END 2023-04-09 22:38 | disposition home or self-care (01) ==
LOC: ER 18:55
DX: S70.01XA Contusion of right hip, initial encounter (principal); W18.30XA Fall on same level, unspecified, initial encounter
CPT/HCPCS: 99283

== ENCOUNTER 2023-05-23 15:12 | Emergency (ER) | payer MEDICARE ==
[~2023-05-23] VITALS: Ht 177.8 cm; Wt 72.6 kg
[2023-05-23 16:40] LABS: BASOPHILS ABSOLUTE AUTO 0.03 K/mm3 (0.00-0.23); BASOPHILS PERCENT AUTO 1 % (0-2); EOSINOPHILS ABSOLUTE AUTO 0.08 K/mm3 (0.00-0.68); EOSINOPHILS PERCENT AUTO 1 % (0-6); Hematocrit 37.2 % (37.0-53.0); Hemoglobin 12.1 g/dL (13.5-17.5); IMMATURE GRAN ABSOLUTE AUTO 0.02 K/mm3 (0.00-0.10); IMMATURE GRAN PERCENT AUTO 0 % (0-1); LYMPHOCYTES ABSOLUTE AUTO 1.02 K/mm3 (0.84-5.20); LYMPHOCYTES PERCENT AUTO 17 % (21-46); MONOCYTES ABSOLUTE AUTO 0.55 K/mm3 (0.16-1.47); MONOCYTES PERCENT AUTO 9 % (4-13); Mean Corpuscular HGB 29.4 pg (26.0-34.0); Mean Corpuscular HGB Conc 32.5 g/dL (31.5-36.5); Mean Corpuscular Volume 90 fL (80-100); Mean Platelet Volume 9.7 fL (9.1-12.4); NEUTROPHILS PERCENT AUTO 72 % (41-73); Platelet Count 214 K/mm3 (150-400); RDW Coefficient Variation 13.6 % (11.7-14.2); Red Blood Cell Count 4.12 M/mm3 (4.30-5.90)
[2023-05-23 17:04] LABS: Albumin, Blood 3.2 g/dL (3.4-5.0); Albumin/Globulin Ratio 1.1 (0.8-1.8); Bilirubin, Total 0.6 mg/dL (0.1-1.0); Bun/Creatinine Ratio 15.8 (12.0-20.0); Calcium, Blood 8.5 mg/dL (8.5-10.1); Creatinine, Blood 0.88 mg/dL (0.60-1.20); Potassium, Blood 4.2 mmol/L (3.5-5.5); Total Protein, Blood 6.2 g/dL (6.4-8.2)
[2023-05-23 19:34] VITALS: BP 130/67
== END 2023-05-23 19:34 | disposition home or self-care (01) ==
LOC: ER 15:12
PROVIDERS: Emergency Medicine
DX: R04.0 Epistaxis (principal); S09.90XA Unspecified injury of head, initial encounter; M19.90 Unspecified osteoarthritis, unspecified site; I34.1 Nonrheumatic mitral (valve) prolapse; F32.A Depression, unspecified; G20.A1 Parkinson's disease without dyskinesia, without mention of fluctuations; F02.80 Dementia in other diseases classified elsewhere, unspecified severity, without behavioral disturbance, psychotic disturbance, mood disturbance, and anxiety; W19.XXXA Unspecified fall, initial encounter; Y92.129 Unspecified place in nursing home as the place of occurrence of the external cause; Z79.899 Other long term (current) drug therapy; Z79.01 Long term (current) use of anticoagulants
CPT/HCPCS: 70450; 72125; 80053; 85025; 99284-25

== ENCOUNTER 2023-10-01 22:41 | Emergency (ER) | payer MEDICARE ==
[~2023-10-01] VITALS: Ht 180.3 cm; Wt 72.6 kg
[~2023-10-01 22:41] MED LIST changes: +ACET325 PO; +ACET500 PO; +CARBIDOPA-LEVO1 EA15 PO; +LOPERAMIDE212 PO; +TAMS.4ER PO
[2023-10-01 23:03] LABS: BASOPHILS ABSOLUTE AUTO 0.01 K/mm3 (0.00-0.23); BASOPHILS PERCENT AUTO 0 % (0-2); EOSINOPHILS ABSOLUTE AUTO 0.01 K/mm3 (0.00-0.68); EOSINOPHILS PERCENT AUTO 0 % (0-6); Hemoglobin 13.4 g/dL (13.5-17.5); IMMATURE GRAN ABSOLUTE AUTO 0.04 K/mm3 (0.00-0.10); IMMATURE GRAN PERCENT AUTO 0 % (0-1); LYMPHOCYTES ABSOLUTE AUTO 0.89 K/mm3 (0.84-5.20); LYMPHOCYTES PERCENT AUTO 9 % (21-46); MONOCYTES ABSOLUTE AUTO 0.73 K/mm3 (0.16-1.47); MONOCYTES PERCENT AUTO 8 % (4-13); Mean Corpuscular HGB 28.8 pg (26.0-34.0); Mean Corpuscular HGB Conc 31.9 g/dL (31.5-36.5); Mean Corpuscular Volume 90 fL (80-100); Mean Platelet Volume 9.2 fL (9.1-12.4); NEUTROPHILS PERCENT AUTO 83 % (41-73); Platelet Count 170 K/mm3 (150-400); RDW Coefficient Variation 13.6 % (11.7-14.2); RDW Standard Deviation 45.3 fL (35.1-46.3); Red Blood Cell Count 4.65 M/mm3 (4.30-5.90); White Blood Cell Count 9.68 K/mm3 (4.00-11.30)
[2023-10-01 23:21] LABS: Albumin, Blood 3.4 g/dL (3.4-5.0); Bilirubin, Total 1.3 mg/dL (0.1-1.0); Calcium, Blood 8.9 mg/dL (8.5-10.1); Creatinine, Blood 1.2 mg/dL (0.60-1.20); Globulin, Blood 3.3 g/dL (2.2-4.0); Potassium, Blood 4.3 mmol/L (3.5-5.5); Total Protein, Blood 6.7 g/dL (6.4-8.2)
[2023-10-01] MEDS ORDERED: MAGNESIUM HYDROXIDE PO (23:28)
[2023-10-01] MEDS ORDERED: ALUMINUM HYDROXIDE PO (23:28)
[2023-10-01] MEDS ORDERED: BISA10S PR (23:29)
[2023-10-01] MEDS ORDERED: QUET25 PO (23:30)
[2023-10-02] MEDS ORDERED: NS 500 ML IV ONE (00:15)
[2023-10-02 08:33] VITALS: BP 113/63
== END 2023-10-02 08:46 | disposition home or self-care (01) ==
LOC: ER 22:41
PROVIDERS: Emergency Medicine
DX: S09.90XA Unspecified injury of head, initial encounter (principal); W18.30XA Fall on same level, unspecified, initial encounter; Z87.891 Personal history of nicotine dependence; Z79.899 Other long term (current) drug therapy
CPT/HCPCS: 70450; 72100; 80053; 85025; 96360; 99284-25; J7030

== ENCOUNTER 2023-10-20 03:29 | Emergency (ER) | payer MEDICARE ==
[~2023-10-20] VITALS: Ht 180.3 cm; Wt 72.6 kg
[~2023-10-20 03:29] MED LIST changes: +ALUMINUM HYDROXIDE PO; +BISA10S PR; +MAGNESIUM HYDROXIDE PO; +QUET25 PO
[2023-10-20] MEDS ORDERED: ATOR20 PO (04:28)
[2023-10-20] MEDS ORDERED: DULCOLAX400 MG/5 M PO (04:31)
[2023-10-20 05:46] LABS: BASOPHILS ABSOLUTE AUTO 0.03 K/mm3 (0.00-0.23); BASOPHILS PERCENT AUTO 0 % (0-2); EOSINOPHILS ABSOLUTE AUTO 0.08 K/mm3 (0.00-0.68); EOSINOPHILS PERCENT AUTO 1 % (0-6); Hemoglobin 9.4 g/dL (13.5-17.5); IMMATURE GRAN ABSOLUTE AUTO 0.06 K/mm3 (0.00-0.10); IMMATURE GRAN PERCENT AUTO 1 % (0-1); LYMPHOCYTES ABSOLUTE AUTO 0.58 K/mm3 (0.84-5.20); LYMPHOCYTES PERCENT AUTO 5 % (21-46); MONOCYTES PERCENT AUTO 7 % (4-13); Mean Corpuscular HGB 29.3 pg (26.0-34.0); Mean Corpuscular HGB Conc 32.4 g/dL (31.5-36.5); Mean Corpuscular Volume 90 fL (80-100); NEUTROPHILS ABSOLUTE AUTO 9.75 K/mm3 (1.96-9.15); NEUTROPHILS PERCENT AUTO 86 % (41-73); Platelet Count 306 K/mm3 (150-400); RDW Coefficient Variation 13.8 % (11.7-14.2); RDW Standard Deviation 45.7 fL (35.1-46.3); Red Blood Cell Count 3.21 M/mm3 (4.30-5.90)
[2023-10-20] MEDS ORDERED: NS 1,000 ML IV SCH (06:00)
[2023-10-20 06:10] LABS: Albumin, Blood 2.9 g/dL (3.4-5.0); Albumin/Globulin Ratio 0.9 (0.8-1.8); Bilirubin, Total 1.2 mg/dL (0.1-1.0); Bun/Creatinine Ratio 21.4 (12.0-20.0); Calcium, Blood 8.3 mg/dL (8.5-10.1); Creatinine, Blood 0.93 mg/dL (0.60-1.20); Globulin, Blood 3.3 g/dL (2.2-4.0); Magnesium, Blood 2.6 mg/dL (1.6-2.4); Potassium, Blood 4.2 mmol/L (3.5-5.5); Total Protein, Blood 6.2 g/dL (6.4-8.2)
[2023-10-20 10:00] VITALS: BP 118/59
== END 2023-10-20 11:44 | disposition home or self-care (01) ==
LOC: ER 03:29
PROVIDERS: Student in an Organized Health Care Education/Training Program
DX: S09.90XA Unspecified injury of head, initial encounter (principal); W18.30XA Fall on same level, unspecified, initial encounter; Z87.891 Personal history of nicotine dependence; Z79.899 Other long term (current) drug therapy
CPT/HCPCS: 70450; 72125; 73502; 80053; 83735; 84484; 85025; J7030

== ENCOUNTER 2023-10-23 12:13 | Emergency (ER) | payer MEDICARE ==
[~2023-10-23] VITALS: Ht 180.3 cm; Wt 72.6 kg
[~2023-10-23 12:13] MED LIST changes: +ATOR20 PO; +DULCOLAX400 MG/5 M PO
[2023-10-23 13:14] LABS: BASOPHILS ABSOLUTE AUTO 0.02 K/mm3 (0.00-0.23); BASOPHILS PERCENT AUTO 0 % (0-2); EOSINOPHILS ABSOLUTE AUTO 0.07 K/mm3 (0.00-0.68); EOSINOPHILS PERCENT AUTO 1 % (0-6); Hematocrit 31.1 % (37.0-53.0); Hemoglobin 10.2 g/dL (13.5-17.5); IMMATURE GRAN ABSOLUTE AUTO 0.08 K/mm3 (0.00-0.10); IMMATURE GRAN PERCENT AUTO 1 % (0-1); LYMPHOCYTES ABSOLUTE AUTO 0.48 K/mm3 (0.84-5.20); LYMPHOCYTES PERCENT AUTO 4 % (21-46); MONOCYTES ABSOLUTE AUTO 0.93 K/mm3 (0.16-1.47); MONOCYTES PERCENT AUTO 8 % (4-13); Mean Corpuscular HGB 29.5 pg (26.0-34.0); Mean Corpuscular HGB Conc 32.8 g/dL (31.5-36.5); Mean Corpuscular Volume 90 fL (80-100); Mean Platelet Volume 9.2 fL (9.1-12.4); NEUTROPHILS ABSOLUTE AUTO 10.77 K/mm3 (1.96-9.15); NEUTROPHILS PERCENT AUTO 87 % (41-73); Platelet Count 373 K/mm3 (150-400); RDW Coefficient Variation 13.7 % (11.7-14.2); Red Blood Cell Count 3.46 M/mm3 (4.30-5.90); White Blood Cell Count 12.35 K/mm3 (4.00-11.30)
[2023-10-23 14:06] LABS: Albumin, Blood 3.1 g/dL (3.4-5.0); Albumin/Globulin Ratio 0.8 (0.8-1.8); Bilirubin, Total 1.1 mg/dL (0.1-1.0); Bun/Creatinine Ratio 17.4 (12.0-20.0); Calcium, Blood 8.7 mg/dL (8.5-10.1); Creatinine, Blood 0.98 mg/dL (0.60-1.20); Globulin, Blood 3.8 g/dL (2.2-4.0); Total Protein, Blood 6.9 g/dL (6.4-8.2)
[2023-10-23] MEDS ORDERED: Trimethoprim/Sulfamethoxazole DS Tab PO ONE (15:20)
[2023-10-23] MEDS ORDERED: SULTRIDS PO ×2 (15:22→17:46)
[2023-10-23 16:29] VITALS: BP 126/56
== END 2023-10-23 16:42 | disposition home or self-care (01) ==
LOC: ER 12:13
PROVIDERS: Physician Assistant
DX: L02.31 Cutaneous abscess of buttock (principal); G20.A1 Parkinson's disease without dyskinesia, without mention of fluctuations; F02.80 Dementia in other diseases classified elsewhere, unspecified severity, without behavioral disturbance, psychotic disturbance, mood disturbance, and anxiety; I10 Essential (primary) hypertension; Z87.891 Personal history of nicotine dependence; Z79.899 Other long term (current) drug therapy
CPT/HCPCS: 10061; 80053; 85025; 99283-25; A9270

== ENCOUNTER 2023-12-22 16:18 | Emergency (ER) | payer MEDICARE ==
[~2023-12-22] VITALS: Ht 177.8 cm; Wt 68.0 kg
[~2023-12-22 16:18] MED LIST changes: +SULTRIDS PO
[2023-12-22] MEDS ORDERED: Diphth,Pertuss(Acell),Tet Vac 0.5 ML VIAL IM ONE (17:20)
[2023-12-22 18:45] VITALS: BP 129/70
== END 2023-12-22 20:43 | disposition home or self-care (01) ==
LOC: ER 16:18
DX: S01.01XA Laceration without foreign body of scalp, initial encounter (principal); I10 Essential (primary) hypertension; G47.00 Insomnia, unspecified; W06.XXXA Fall from bed, initial encounter; Z87.891 Personal history of nicotine dependence; Z79.899 Other long term (current) drug therapy
CPT/HCPCS: 12001; 70450; 90471; 90715; 99284-25